=== PATIENT | male | born 1960 | race African-American/Black ===

== ENCOUNTER 2022-01-12 13:15 | Inpatient (IN) | payer MEDICAID, OTHER ==
[~2022-01-12] VITALS: Ht 175.3 cm; Wt 98.6 kg
[2022-01-12 14:08] LABS: Basophils # (auto) 0 10 ^3/uL (0-0.2); Basophils % (auto) 1.3 % (0.0-2.0); Eosinophils # (auto) 0 10 ^3/uL (0-0.8); Eosinophils % (auto) 0.8 % (0.0-7.0); Hematocrit 40.9 % (41.0-53.0); Lymphocytes # (auto) 1.1 10 ^3/uL (0.4-5.4); Lymphocytes % (auto) 31.9 % (10.0-50.0); Mean Corpuscular Hgb Conc. 31.9 g/dL (32.0-36.0); Monocytes # (auto) 0.3 10 ^3/uL (0-1.3); Monocytes % (auto) 8.1 % (0.0-12.0); Neutrophils % (auto) 57.9 % (37.0-80.0); Nucleated Red Blood Cells % 0.1 %; Red Blood Cells 4.49 10^6/uL (4.5-5.90); Red Cell Distribution Width 18.5 % (11.8-14.3); White Blood Cell 3.4 10^3/uL (4.4-10.8)
[2022-01-12 14:50] LABS: Albumin 2.9 g/dL (3.4-5.0); Calcium 8.6 mg/dL (8.5-10.1); Potassium 3.9 mmol/L (3.5-5.1)
[2022-01-12 14:53] LABS: Bilirubin, Total 1.9 mg/dL (0.2-1.0); Total Protein 7.4 g/dL (6.4-8.2)
[2022-01-12] MEDS ORDERED: ACETAMINOPHEN 325 MG TAB PO PRN (18:30)
[2022-01-12] MEDS ORDERED: ONDANSETRON HCL 4 MG/2 ML VIAL IV PRN (18:30)
[2022-01-12] MEDS ORDERED: DEXTROSE (50%) 50ML SYRG IV PRN (18:45)
[2022-01-12] MEDS: ACCU-CHEK COMFORT CURVE STRIP VI SCH (22:00)
[2022-01-12] MEDS: AZITHROMYCIN 500MG/ 250ML 250 ML IV SCH (22:42)
[2022-01-12] MEDS: InsuLIN REG 1unit/0.01ml Soln (100units/ml) SC SCH (23:00)
[2022-01-13] MEDS: PIPERACILLIN-TAZOB 3.375GM 100 ML IV SCH ×3 (04:15→18:17)
[2022-01-13 04:18] VITALS: BP 133/94
[2022-01-13 05:00] VITALS: BP 148/67
[2022-01-13] MEDS ORDERED: BECL80AE11 PO (05:27)
[2022-01-13] MEDS ORDERED: ALBU108A5 PO (05:27)
[2022-01-13] MEDS ORDERED: ATOR-47 PO (05:27)
[2022-01-13] MEDS ORDERED: FAMO40TA7 PO (05:27)
[2022-01-13] MEDS ORDERED: SACU1TAB PO (05:27)
[2022-01-13] MEDS ORDERED: CARV25TA55 PO (05:27)
[2022-01-13] MEDS: ACCU-CHEK COMFORT CURVE STRIP VI SCH ×4 (06:32→22:20)
[2022-01-13] MEDS: InsuLIN REG 1unit/0.01ml Soln (100units/ml) SC SCH ×4 (06:33→22:00)
[2022-01-13 09:00] VITALS: BP 130/89
[2022-01-13 11:03] LABS: Potassium 3.9 mmol/L (3.5-5.1)
[2022-01-13] MEDS: DAPAGLIFLOZIN 5 MG TAB PO SCH (11:07)
[2022-01-13] MEDS: ENOXAPARIN SOD 40 MG/0.4 ML SYRINGE SC SCH (11:07)
[2022-01-13] MEDS: SPIRONOLACTONE 25 MG TAB PO SCH (11:07)
[2022-01-13] MEDS: FUROSEMIDE 20 MG TAB PO SCH (11:07)
[2022-01-13 11:14] LABS: Albumin 2.9 g/dL (3.4-5.0); BUN/Creatinine Ratio 13.3; Bilirubin, Total 2.2 mg/dL (0.2-1.0); Calcium 8.5 mg/dL (8.5-10.1); Total Protein 8.4 g/dL (6.4-8.2)
[2022-01-13 13:04] LABS: Urine Bacteria FEW /hpf (None Seen); Urine Blood 1+ /uL (Negative); Urine Specific Gravity 1.007 (1.001-1.035); Urine WBC 30 /hpf (0 - 3)
[2022-01-13 13:20] LABS: Alcohol, Urine < 3.0 mg/dL (0-10); Amphetamine Screen, Urine POSITIVE (NEGATIVE); Barbiturate Scree,Urine NEGATIVE (NEGATIVE); Benzodiazephine Screen, Urine NEGATIVE (NEGATIVE); Cannabinoid Screen, Urine NEGATIVE (NEGATIVE); Cocaine Screen, Urine NEGATIVE (NEGATIVE); Opiate Scree,Urine NEGATIVE (NEGATIVE); Phencyclidine Screen, Urine NEGATIVE (NEGATIVE)
[2022-01-13 16:48] VITALS: BP 134/95
[2022-01-13 18:01] LABS: Basophils # (auto) 0 10 ^3/uL (0-0.2); Basophils % (auto) 1.1 % (0.0-2.0); Eosinophils # (auto) 0.1 10 ^3/uL (0-0.8); Eosinophils % (auto) 1.5 % (0.0-7.0); Hematocrit 44.2 % (41.0-53.0); Hemoglobin 13.9 g/dL (13.5-17.5); Lymphocytes # (auto) 1.3 10 ^3/uL (0.4-5.4); Lymphocytes % (auto) 37.9 % (10.0-50.0); Mean Corpuscular Hemoglobin 28.9 pg (28.0-32.0); Mean Corpuscular Hgb Conc. 31.4 g/dL (32.0-36.0); Mean Corpuscular Volume 92.1 fL (80.0-100.0); Monocytes # (auto) 0.3 10 ^3/uL (0-1.3); Monocytes % (auto) 7.5 % (0.0-12.0); Neutrophils # (auto) 1.8 10 ^3/uL (1.6-8.6); Nucleated Red Blood Cells % 0.1 %; Red Blood Cells 4.79 10^6/uL (4.5-5.90); Red Cell Distribution Width 18.8 % (11.8-14.3); White Blood Cell 3.4 10^3/uL (4.4-10.8)
[2022-01-13 22:00] VITALS: BP 136/94
[2022-01-13] MEDS: HYDROcodone-ACET 5/325MG TAB PO PRN (22:17)
[2022-01-13] MEDS: AZITHROMYCIN 500MG/ 250ML 250 ML IV SCH (22:21)
[2022-01-14] MEDS: PIPERACILLIN-TAZOB 3.375GM 100 ML IV SCH ×3 (03:32→17:51)
[2022-01-14 05:00] VITALS: BP 104/62
[2022-01-14 06:20] LABS: Basophils # (auto) 0.2 10 ^3/uL (0-0.2); Basophils % (auto) 4.9 % (0.0-2.0); Eosinophils # (auto) 0 10 ^3/uL (0-0.8); Eosinophils % (auto) 1.2 % (0.0-7.0); Hematocrit 37.9 % (41.0-53.0); Hemoglobin 12.5 g/dL (13.5-17.5); Lymphocytes # (auto) 1.2 10 ^3/uL (0.4-5.4); Mean Corpuscular Hemoglobin 30.3 pg (28.0-32.0); Mean Corpuscular Hgb Conc. 32.9 g/dL (32.0-36.0); Monocytes # (auto) 0.3 10 ^3/uL (0-1.3); Monocytes % (auto) 9.2 % (0.0-12.0); Neutrophils # (auto) 1.6 10 ^3/uL (1.6-8.6); Neutrophils % (auto) 48.7 % (37.0-80.0); Nucleated Red Blood Cells % 0.2 %; Red Blood Cells 4.12 10^6/uL (4.5-5.90); Red Cell Distribution Width 18.5 % (11.8-14.3); White Blood Cell 3.4 10^3/uL (4.4-10.8)
[2022-01-14] MEDS: ACCU-CHEK COMFORT CURVE STRIP VI SCH ×4 (06:29→21:44)
[2022-01-14] MEDS: InsuLIN REG 1unit/0.01ml Soln (100units/ml) SC SCH ×4 (06:38→21:45)
[2022-01-14 06:44] LABS: Potassium 3.8 mmol/L (3.5-5.1)
[2022-01-14 06:54] LABS: Albumin 2.3 g/dL (3.4-5.0); BUN/Creatinine Ratio 16.8; Bilirubin, Total 1.6 mg/dL (0.2-1.0); Calcium 8.2 mg/dL (8.5-10.1); Total Protein 6.4 g/dL (6.4-8.2)
[2022-01-14] MEDS: ENOXAPARIN SOD 40 MG/0.4 ML SYRINGE SC SCH (08:07)
[2022-01-14] MEDS: DAPAGLIFLOZIN 5 MG TAB PO SCH (08:07)
[2022-01-14] MEDS: SPIRONOLACTONE 25 MG TAB PO SCH (08:07)
[2022-01-14] MEDS: HYDROcodone-ACET 5/325MG TAB PO PRN (08:08)
[2022-01-14 09:00] VITALS: BP 127/73
[2022-01-14] MEDS: FUROSEMIDE 20 MG TAB PO SCH (12:12)
[2022-01-14 14:00] VITALS: BP 104/70
[2022-01-14] MEDS ORDERED: FUR20T PO (15:49)
[2022-01-14] MEDS ORDERED: LEVO500T31 PO (15:49)
[2022-01-14] MEDS ORDERED: SPIR25TA PO (15:49)
[2022-01-14 17:00] VITALS: BP 117/60
[2022-01-14 22:00] VITALS: BP 116/81
[2022-01-15] MEDS: AZITHROMYCIN 500MG/ 250ML 250 ML IV SCH (00:05)
[2022-01-15] MEDS: HYDROcodone-ACET 5/325MG TAB PO PRN ×3 (00:13→22:15)
[2022-01-15] MEDS: PIPERACILLIN-TAZOB 3.375GM 100 ML IV SCH ×2 (02:41→09:38)
[2022-01-15 05:00] VITALS: BP 113/82
[2022-01-15] MEDS: ACCU-CHEK COMFORT CURVE STRIP VI SCH ×4 (05:37→22:03)
[2022-01-15] MEDS: InsuLIN REG 1unit/0.01ml Soln (100units/ml) SC SCH ×4 (05:40→22:11)
[2022-01-15 09:00] VITALS: BP 122/85
[2022-01-15] MEDS: SPIRONOLACTONE 25 MG TAB PO SCH (09:37)
[2022-01-15] MEDS: FUROSEMIDE 20 MG TAB PO SCH (09:38)
[2022-01-15] MEDS: ENOXAPARIN SOD 40 MG/0.4 ML SYRINGE SC SCH (09:38)
[2022-01-15] MEDS: DAPAGLIFLOZIN 5 MG TAB PO SCH (09:38)
[2022-01-15 13:00] VITALS: BP 132/86
[2022-01-15 17:00] VITALS: BP 120/85
[2022-01-15] MEDS: MORPHINE SULFATE INJ 2 MG/ml SYRG IV PRN (20:32)
[2022-01-15 22:00] VITALS: BP 112/82
[2022-01-16] MEDS: MORPHINE SULFATE INJ 2 MG/ml SYRG IV PRN (04:45)
[2022-01-16 05:00] VITALS: BP 111/68
[2022-01-16] MEDS: ACCU-CHEK COMFORT CURVE STRIP VI SCH ×2 (06:23→11:40)
[2022-01-16] MEDS: InsuLIN REG 1unit/0.01ml Soln (100units/ml) SC SCH ×2 (06:24→11:43)
[2022-01-16] MEDS: HYDROcodone-ACET 5/325MG TAB PO PRN (06:25)
[2022-01-16 09:00] VITALS: BP 102/74
[2022-01-16] MEDS: SPIRONOLACTONE 25 MG TAB PO SCH (09:50)
[2022-01-16] MEDS: FUROSEMIDE 20 MG TAB PO SCH (09:51)
[2022-01-16] MEDS: DAPAGLIFLOZIN 5 MG TAB PO SCH (09:51)
[2022-01-16] MEDS: ENOXAPARIN SOD 40 MG/0.4 ML SYRINGE SC SCH (09:51)
[2022-01-16 10:56] VITALS: BP 102/74
[2022-01-17] MEDS ORDERED: FLUO40CA2 PO (21:16)
== END 2022-01-16 14:00 | disposition home or self-care (01) | DRG 383 ==
LOC: EDBD 13:15 → ER 13:15 → TELE 18:29 → TELE-WESTW 01-13 03:05
PROVIDERS: ADMIT Internal Medicine; ATTEND Internal Medicine
DX: L03.116 Cellulitis of left lower limb (principal); I50.21 Acute systolic (congestive) heart failure; J18.9 Pneumonia, unspecified organism; I42.0 Dilated cardiomyopathy; J44.0 Chronic obstructive pulmonary disease with (acute) lower respiratory infection; E11.40 Type 2 diabetes mellitus with diabetic neuropathy, unspecified; I11.0 Hypertensive heart disease with heart failure; J44.9 Chronic obstructive pulmonary disease, unspecified; Z20.822 Contact with and (suspected) exposure to COVID-19; E78.5 Hyperlipidemia, unspecified; F12.90 Cannabis use, unspecified, uncomplicated; F15.90 Other stimulant use, unspecified, uncomplicated; I87.8 Other specified disorders of veins; I89.0 Lymphedema, not elsewhere classified; N39.0 Urinary tract infection, site not specified; Z59.00 Homelessness unspecified; Z82.49 Family history of ischemic heart disease and other diseases of the circulatory system; Z83.3 Family history of diabetes mellitus; Z91.19 Patient's noncompliance with other medical treatment and regimen; Z95.810 Presence of automatic (implantable) cardiac defibrillator
CPT/HCPCS: 36415; 71045; 73700; 80053; 80061; 80307; 81001; 82962; 83036; 83880; 84484; 85025; 87086; 93005; 96365; 96372; G0378; J1815; J2543

== ENCOUNTER 2022-01-17 01:41 | Inpatient (IN) | payer MEDICAID ==
[~2022-01-17] VITALS: Ht 182.9 cm; Wt 88.0 kg
[~2022-01-17 01:41] MED LIST: ALBU108A5 PO; ATOR-47 PO; BECL80AE11 PO; CARV25TA55 PO; FAMO40TA7 PO; FUR20T PO; LEVO500T31 PO; SACU1TAB PO; SPIR25TA PO
[2022-01-17 03:38] LABS: Basophils # (auto) 0.1 10 ^3/uL (0-0.2); Eosinophils # (auto) 0 10 ^3/uL (0-0.8); Eosinophils % (auto) 0.9 % (0.0-7.0); Hematocrit 44.9 % (41.0-53.0); Hemoglobin 14.2 g/dL (13.5-17.5); Lymphocytes # (auto) 1.4 10 ^3/uL (0.4-5.4); Lymphocytes % (auto) 42.6 % (10.0-50.0); Mean Corpuscular Hemoglobin 28.6 pg (28.0-32.0); Mean Corpuscular Hgb Conc. 31.6 g/dL (32.0-36.0); Mean Corpuscular Volume 90.4 fL (80.0-100.0); Monocytes # (auto) 0.2 10 ^3/uL (0-1.3); Monocytes % (auto) 6.7 % (0.0-12.0); Neutrophils # (auto) 1.6 10 ^3/uL (1.6-8.6); Neutrophils % (auto) 47.8 % (37.0-80.0); Nucleated Red Blood Cells % 0.2 %; Red Blood Cells 4.97 10^6/uL (4.5-5.90); White Blood Cell 3.4 10^3/uL (4.4-10.8)
[2022-01-17 03:50] LABS: Albumin 3.1 g/dL (3.4-5.0); Calcium 9.2 mg/dL (8.5-10.1); Potassium 4.6 mmol/L (3.5-5.1)
[2022-01-17 03:55] LABS: Bilirubin, Total 1.2 mg/dL (0.2-1.0); Total Protein 7.6 g/dL (6.4-8.2)
[2022-01-17] MEDS ORDERED: SPIRONOLACTONE 25 MG TAB PO ONE (08:00)
[2022-01-17] MEDS ORDERED: FUROSEMIDE 40 MG/4 ML VIAL IV ONE (08:00)
[2022-01-17 09:24] LABS: Urine Bacteria NONE SEEN /hpf (None Seen); Urine Blood Negative /uL (Negative); Urine Specific Gravity 1.017 (1.001-1.035); Urine WBC 1 /hpf (0 - 3)
[2022-01-17] MEDS ORDERED: ONDANSETRON HCL 4 MG/2 ML VIAL IV PRN (16:15)
[2022-01-17] MEDS ORDERED: MORPHINE SULFATE INJ 2 MG/ml SYRG IV PRN (16:15)
[2022-01-17] MEDS ORDERED: NITROGLYCERIN 0.4 MG SL TAB SL PRN (16:15)
[2022-01-17] MEDS ORDERED: FLUO40CA2 PO (21:16)
[2022-01-17 21:40] VITALS: BP 135/95
[2022-01-17] MEDS ORDERED: FUROSEMIDE 40 MG/4 ML VIAL IV SCH (22:00)
[2022-01-18 05:00] VITALS: BP 128/93
[2022-01-18 05:31] LABS: Basophils # (auto) 0 10 ^3/uL (0-0.2); Basophils % (auto) 1.3 % (0.0-2.0); Eosinophils # (auto) 0 10 ^3/uL (0-0.8); Hematocrit 40.5 % (41.0-53.0); Hemoglobin 13.6 g/dL (13.5-17.5); Lymphocytes # (auto) 1.4 10 ^3/uL (0.4-5.4); Lymphocytes % (auto) 45.5 % (10.0-50.0); Mean Corpuscular Hemoglobin 30.2 pg (28.0-32.0); Mean Corpuscular Hgb Conc. 33.7 g/dL (32.0-36.0); Mean Corpuscular Volume 89.7 fL (80.0-100.0); Monocytes # (auto) 0.3 10 ^3/uL (0-1.3); Monocytes % (auto) 7.9 % (0.0-12.0); Neutrophils # (auto) 1.4 10 ^3/uL (1.6-8.6); Neutrophils % (auto) 44.3 % (37.0-80.0); Nucleated Red Blood Cells % 0.2 %; Red Blood Cells 4.51 10^6/uL (4.5-5.90); Red Cell Distribution Width 17.9 % (11.8-14.3); White Blood Cell 3.2 10^3/uL (4.4-10.8)
[2022-01-18 05:41] LABS: Albumin 2.8 g/dL (3.4-5.0); BUN/Creatinine Ratio 13.3; Calcium 8.7 mg/dL (8.5-10.1); Potassium 4.4 mmol/L (3.5-5.1)
[2022-01-18 05:53] LABS: Total Protein 7.4 g/dL (6.4-8.2)
[2022-01-18 09:00] VITALS: BP_SYST 105; BP_SYST 137; BP_DIAS 64; BP_DIAS 92
[2022-01-18] MEDS: CARVEDILOL 3.125 MG TAB PO SCH ×2 (10:06→22:23)
[2022-01-18] MEDS: FUROSEMIDE 40 MG/4 ML VIAL IV SCH ×2 (10:06→22:23)
[2022-01-18] MEDS: SPIRONOLACTONE 25 MG TAB PO SCH (10:06)
[2022-01-18] MEDS: SACUBITRIL-VALSARTAN 24mg/26mg TAB PO SCH ×2 (10:07→22:24)
[2022-01-18] MEDS ORDERED: DEXTROSE (50%) 50ML SYRG IV PRN (12:00)
[2022-01-18 13:00] VITALS: BP 124/82
[2022-01-18] MEDS: InsuLIN REG 1unit/0.01ml Soln (100units/ml) SC SCH ×3 (13:01→22:37)
[2022-01-18 17:00] VITALS: BP 122/88
[2022-01-18] MEDS ORDERED: InsuLIN REG 1unit/0.01ml Soln (100units/ml) SC SCH (17:00)
[2022-01-18] MEDS: ACCU-CHEK COMFORT CURVE STRIP VI SCH ×2 (17:29→22:24)
[2022-01-18 20:00] VITALS: BP 114/71
[2022-01-18] MEDS: MORPHINE SULFATE INJ 2 MG/ml SYRG IV PRN (22:25)
[2022-01-18 22:31] LABS: Alcohol, Urine < 3.0 mg/dL (0-10); Amphetamine Screen, Urine NEGATIVE (NEGATIVE); Barbiturate Scree,Urine NEGATIVE (NEGATIVE); Benzodiazephine Screen, Urine NEGATIVE (NEGATIVE); Cannabinoid Screen, Urine NEGATIVE (NEGATIVE); Cocaine Screen, Urine NEGATIVE (NEGATIVE); Opiate Scree,Urine NEGATIVE (NEGATIVE); Phencyclidine Screen, Urine NEGATIVE (NEGATIVE)
[2022-01-19 05:00] VITALS: BP 99/66
[2022-01-19 05:25] LABS: Basophils # (auto) 0 10 ^3/uL (0-0.2); Basophils % (auto) 0.9 % (0.0-2.0); Eosinophils # (auto) 0 10 ^3/uL (0-0.8); Eosinophils % (auto) 1.2 % (0.0-7.0); Hematocrit 44.8 % (41.0-53.0); Hemoglobin 14.7 g/dL (13.5-17.5); Lymphocytes # (auto) 1.4 10 ^3/uL (0.4-5.4); Lymphocytes % (auto) 37.2 % (10.0-50.0); Mean Corpuscular Hemoglobin 29.7 pg (28.0-32.0); Mean Corpuscular Hgb Conc. 32.8 g/dL (32.0-36.0); Mean Corpuscular Volume 90.4 fL (80.0-100.0); Monocytes # (auto) 0.3 10 ^3/uL (0-1.3); Monocytes % (auto) 8.9 % (0.0-12.0); Neutrophils # (auto) 1.9 10 ^3/uL (1.6-8.6); Neutrophils % (auto) 51.8 % (37.0-80.0); Nucleated Red Blood Cells % 0.2 %; Red Blood Cells 4.96 10^6/uL (4.5-5.90); Red Cell Distribution Width 18.2 % (11.8-14.3); White Blood Cell 3.7 10^3/uL (4.4-10.8)
[2022-01-19 05:31] LABS: BUN/Creatinine Ratio 17.6; Calcium 8.5 mg/dL (8.5-10.1); Potassium 4.1 mmol/L (3.5-5.1)
[2022-01-19] MEDS: ACCU-CHEK COMFORT CURVE STRIP VI SCH ×4 (06:41→22:58)
[2022-01-19] MEDS: InsuLIN REG 1unit/0.01ml Soln (100units/ml) SC SCH ×4 (06:44→23:17)
[2022-01-19 08:36] VITALS: BP 91/60
[2022-01-19] MEDS: SPIRONOLACTONE 25 MG TAB PO SCH (08:40)
[2022-01-19] MEDS: FUROSEMIDE 40 MG/4 ML VIAL IV SCH ×2 (08:40→22:57)
[2022-01-19] MEDS: CARVEDILOL 3.125 MG TAB PO SCH ×2 (08:41→22:57)
[2022-01-19] MEDS: SACUBITRIL-VALSARTAN 24mg/26mg TAB PO SCH ×2 (08:41→22:57)
[2022-01-19] MEDS: MORPHINE SULFATE INJ 2 MG/ml SYRG IV PRN (12:24)
[2022-01-19 12:34] VITALS: BP 112/77
[2022-01-19 17:00] VITALS: BP 116/80
[2022-01-19 22:00] VITALS: BP 121/81
[2022-01-20 05:00] VITALS: BP 109/76
[2022-01-20 05:40] LABS: BUN/Creatinine Ratio 23.1; Calcium 8.2 mg/dL (8.5-10.1); Potassium 4.2 mmol/L (3.5-5.1)
[2022-01-20] MEDS: ACCU-CHEK COMFORT CURVE STRIP VI SCH ×3 (06:33→17:52)
[2022-01-20] MEDS: InsuLIN REG 1unit/0.01ml Soln (100units/ml) SC SCH ×3 (06:51→17:53)
[2022-01-20] MEDS: MORPHINE SULFATE INJ 2 MG/ml SYRG IV PRN (07:28)
[2022-01-20] MEDS: CARVEDILOL 3.125 MG TAB PO SCH (08:39)
[2022-01-20] MEDS: SACUBITRIL-VALSARTAN 24mg/26mg TAB PO SCH (08:41)
[2022-01-20] MEDS: FUROSEMIDE 40 MG/4 ML VIAL IV SCH (08:41)
[2022-01-20] MEDS: SPIRONOLACTONE 25 MG TAB PO SCH (08:41)
[2022-01-20 08:49] LABS: INR 1.2 (0.9-1.15); Partial Thromboplastin Time 27.9 sec (24.6-33.4)
[2022-01-20 09:10] VITALS: BP 97/67
[2022-01-20] MEDS ORDERED: CAR3125T PO ×2 (12:09→13:11)
[2022-01-20] MEDS ORDERED: FURO40TA4 PO ×2 (12:09→13:11)
[2022-01-20] MEDS ORDERED: GLIP5TAB12 PO ×2 (12:12→13:11)
[2022-01-20] MEDS ORDERED: METF-370 PO ×2 (12:12→13:11)
[2022-01-20 13:25] VITALS: BP 105/64
[2022-01-20 16:20] VITALS: BP 101/63
[2022-01-20 17:24] VITALS: BP 105/64
== END 2022-01-20 21:27 | disposition home or self-care (01) | DRG 194 ==
LOC: EDUNIT# 01:41 → EDBD 01:41 → ER 01:41 → TELE 16:13 → TELE-WESTW 20:30
PROVIDERS: ADMIT Internal Medicine; ATTEND Internal Medicine
PROC: 4B02XTZ Measurement of Cardiac Defibrillator, External Approach (ICD-10-PCS; principal; 2022-01-19)
DX: I11.0 Hypertensive heart disease with heart failure (principal); E44.1 Mild protein-calorie malnutrition; I50.23 Acute on chronic systolic (congestive) heart failure; E11.65 Type 2 diabetes mellitus with hyperglycemia; J44.9 Chronic obstructive pulmonary disease, unspecified; F17.200 Nicotine dependence, unspecified, uncomplicated; E78.5 Hyperlipidemia, unspecified; Z20.822 Contact with and (suspected) exposure to COVID-19; Z59.01 Sheltered homelessness; Z82.49 Family history of ischemic heart disease and other diseases of the circulatory system; Z91.19 Patient's noncompliance with other medical treatment and regimen; Z95.810 Presence of automatic (implantable) cardiac defibrillator; Z79.899 Other long term (current) drug therapy
CPT/HCPCS: 36415; 36600; 71045; 80048; 80053; 80307; 81001; 82805; 82962; 83735; 83880; 84484; 85025; 85610; 85730; 87081; 93005; 93306; 96374; 96376; G0378; J1815

== ENCOUNTER 2024-09-01 14:27 | Inpatient (IN) | payer MEDICAID ==
[~2024-09-01] VITALS: Ht 182.9 cm; Wt 142.3 kg
[~2024-09-01 14:27] MED LIST changes: +CARV-214 PO; -CARV25TA55 PO; +FLUO40CA2 PO; -FUR20T PO; +FURO40TA4 PO; +GLIP5TAB21 PO; +METF-370 PO
--- NOTE | 2024-09-01 14:34 | ED.PDOC ---
SOB-HPI HPI Comments 64y M who presents to the ED via EMS for chief complaint of shortness of breath. - pt states he has been having shortness of breath for the past 3-4 days getting progressively worse - pt over the past 3 days has been having associated cough, fever and body aches and called EMS - EMS arrived on scene and noted the following vitals: BP: 130/90, HR: 88, and 02 sat 98% on room air - pt was not in respiratory distress and brought to the ED after placing pt on supplemental 02 after noting pt has history of COPD and is normally on 2 L via nc - pt otherwise denies chest pain, fever, cough, chills, diaphoresis, palpitations, - pt states he was at [facility] for CHF exacerbation and discharged 3 weeks prior but states has not taken any of his regular medications since - Past medical history: COPD, CHF, HTN, DM, HLD past surgical history: pacemaker, knee replacement Medications: asa, Lasix, hydralazine, Allergies: nkda Social history: endorses ETOH, denies tobacco use, endorses drug use(marijuana, METH) HPI: Poor Historian. REVIEW OF SYSTEMS: CONSTITUTIONAL: Denies acute: fever, diaphoresis, chills, HEAD: Denies acute: headache, photophobia Eyes: Denies acute: Double vision, vision loss, eye pain, eye discharge. EARS: Denies acute: tinnitus, hearing loss, ear discharge, ear pain, THROAT: Denies acute: sore throat, swelling, difficulty swallowing , pain with swallowing, change in voice. NECK: Denies acute: neck pain, neck swelling, stiff neck. HEART: Denies acute : chest pain, palpitations, LUNGS: Denies acute: wheezing, cough, hemoptysis ABDOMEN: Denies acute: abdominal pain, Nausea, Vomiting, diarrhea, melena , hematemesis, hematochezia SKIN: Denies acute: rash, redness, lesions, itchiness. EXTREMITIES: Denies acute: calf pain, numbness, tingling, weakness, denies pain in extremity. Denies acute: Low back pain. Neuro: Denies acute: focal neurological deficit, motor or sensory focal neurological deficit, tremors, seizure like activity, confusion, dizziness, change in mental status, loss of bowel or bladder function, cauda equina like symptoms. : Denies acute: dysuria, hematuria, flank pain, increase in urinary frequency. PSYCH: Denies acute: hallucination, suicidal ideation, homicidal ideation. PHYSICAL EXAM: General: -----[id number]---acute distress, awake and alert. Head: normocephalic, atraumatic. Neck: supple, trachea is midline, no swelling. Throat: Normal phonation. Eyes:, no erythema, no purulent discharge, no proptosis, no icterus. Heart: regular rate, regular rhythm, no significant murmur appreciated. Lungs: Mild respiratory distress, Able to speak in full sentences. No wheezing, no rhonchi, no crackles. No stridors Clear to auscultation bilaterally. Abdomen: non tender to palpation, non distended, soft, no guarding, no rebound, + bowel sounds. Neuro: Awake, Alert, oriented to name, self, situation, follows commands GCS=15. Speech is normal. Skin: no petechia, no purpura, no cyanosis, non-pale, not jaundice. Lower extremities: --2/4 b/l - Pitting edema no deformity, no focal swelling, no calf TTP. Makes eye contact. moves all four extremities. Face: no apparent facial droop. ED COURSE: Time Seen by MD: 14:51 Primary Care Provider: OCTAVIA Matamoros notes: Nurses Notes, Medications, Allergies Information Source: Patient Mode of Arrival: Ambulatory Brought in by: EMS Past Medical History PAST MEDICAL HISTORY: CHF, COPD, DM, High Lipids, HTN Surgical History: Appendectomy, Pacemaker Family History Family History: Reviewed,noncontributory to illness Social History Smoker: Other Alcohol: Occasionally Drugs: Marijuana, Methamphetamine Lives In: Homeless Was a procedure done? Was a procedure done?: No Differential Dx Differential Diagnosis: Other (DDx include ACS, unstable angina, anxiety, PE, pneumothroax, neoplasm, cardiac ischemia, COPD, asthma, CHF, pleural effusion, tobacco abuse, pneumonia, hypoxia, hypercapnia, anemia., infection/sepsis., pulmonary edema. Asthma, Cardiac tamponade, infection.) X-Ray, Labs, Meds, VS Vital Signs Date Time Temp Pulse Resp B/P (MAP) Pulse Ox O2 Delivery O2 Flow Rate FiO2 09/01/24 15:18 139/93 09/01/24 14:27 89 09/01/24 14:27 94.1 87 22 126/82 (97) 100 94.1 Lab Test 09/01/24 14:44 Range/Units White Blood Count 2.9 L 4.4-10.8 10^3/uL Red Blood Count 4.11 L 4.5-5.90 10^6/uL Hemoglobin 12.5 L 13.5-17.5 g/dL Hematocrit 38.9 L 41.0-53.0 % Mean Corpuscular Volume 94.7 80.0-100.0 fL Mean Corpuscular Hemoglobin 30.5 28.0-32.0 pg Mean Corpuscular Hemoglobin Concent 32.2 32.0-36.0 g/dL Red Cell Distribution Width 18.0 H 11.8-14.3 % Platelet Count 191 140-450 10^3/uL Mean Platelet Volume 7.8 6.9-10.8 fL Neutrophils (%) (Auto) 50.6 37.0-80.0 % Lymphocytes (%) (Auto) 36.3 10.0-50.0 % Monocytes (%) (Auto) 9.8 0.0-12.0 % Eosinophils (%) (Auto) 2.3 0.0-7.0 % Basophils (%) (Auto) 1.0 0.0-2.0 % Neutrophils # (Auto) 1.4 L 1.6-8.6 10 ^3/uL Lymphocytes # (Auto) 1.0 0.4-5.4 10 ^3/uL Monocytes # (Auto) 0.3 0-1.3 10 ^3/uL Eosinophils # (Auto) 0.1 0-0.8 10 ^3/uL Basophils # (Auto) 0 0-0.2 10 ^3/uL Nucleated Red Blood Cells 0.1 % Sodium Level 135 L 136-145 mmol/L Potassium Level 4.8 3.5-5.1 mmol/L Chloride Level 106 98-107 mmol/L Carbon Dioxide Level 22 20-31 mmol/L Anion Gap 7 5-15 Blood Urea Nitrogen 21 9-23 mg/dL Creatinine 1.05 0.700-1.30 mg/dL Glomerular Filtration Rate Calc 80 >90 mL/min BUN/Creatinine Ratio 20.0 10.0-20.0 Serum Glucose 152 H 74-106 mg/dL Calcium Level 9.0 8.7-10.4 mg/dL Total Bilirubin 1.1 H 0.2-1.0 mg/dL Aspartate Amino Transferase (AST) 24 13-40 U/L Alanine Aminotransferase (ALT) 19 7-40 U/L Alkaline Phosphatase 124 H 46-116 U/L Troponin I High Sensitivity 25 </=54 ng/L B-Type Natriuretic Peptide 687.75 0-100 pg/mL Total Protein 8.0 5.7-8.2 g/dL Albumin 3.8 3.2-4.8 g/dL Current Medications Medications (Trade) Dose Ordered Sig/Eyal Route Start Time Stop Time Status Last Admin Furosemide (Lasix Injection) 60 mg ONCE ONCE IV 09/01/24 14:30 09/01/24 14:31 DC 09/01/24 15:18 [place] [address] Ph: [phone] DIAGNOSTIC IMAGING Diagnostic Imaging Report : [id number] Signed PATIENT: VINAYAK HAMLIN ACCT: [id number] UNIT: [id number] : 1960 LOC: ER ROOM / BED: / AGE / SEX: 64 / M ADM STATUS: REG ER SERVICE 1429 ORDERING PHYSICIAN: MAGGY HUTCHINSON DO PROCEDURE(s): CXRP - CHEST PORTABLE REASON: sob ORDER NUMBER(s): [id number], ACCESSION NUMBER(s): [id number] EXAM: XY CHEST PORTABLE HISTORY: sob COMPARISON: CHEST PORTABLE on DOS: 01/17/22, CHEST PORTABLE on DOS: 01/12/22 TECHNIQUE: Portable AP view of the chest was performed. FINDINGS: No pneumothorax or consolidative infiltrates. There is mild central pulmonary vascular congestion. The heart is enlarged. Left chest AICD is re-identified. There are postoperative changes of the right glenoid. IMPRESSION: Cardiomegaly and mild central pulmonary vascular congestion. The lungs are otherwise clear. ATED BY: JOAQUIM LAY MD DICTATED DATE/TIME: 09/01/24 1500 SIGNED BY: JOAQUIM LAY MD SIGNED DATE/TIME: 09/01/24 1500 CC: Time of 1ST Reevaluation: 15:13 Reevaluation 1ST: Improved Patient Education/Counseling: Diagnosis, Treatment Family Education/Counseling: No Family Present Comments Patient presented with the above HPI.--dyspnea----workup was initiated. patient was found with the above mentioned diagnosis. the following medications were ordered: please refer to order lists of meds and tests obtained by myself Dr. Hutchinson. Patient ED course and VS have been stabilized. Patient has been reassessed in the ED and remained in a stable condition. Pertinent incidental findings were discussed with the patient and/or family. Patient/family voices understanding and is agreeable with plan. Patient has been observed in the ED adequate length of time to insure improvement/stability. Escalation of care considered: Consideration of escalation to observation or admission Patient states that since he was discharged from the hospital approximately three weeks ago he has not been taking including Lasix. Patient was ADMITTED to the medicine team for further evaluation and treatment of their presentation. All the reports of any imaging studies that were ordered by myself were reviewed by myself. Departure 1 Departure Time of Disposition: 15:12 Impression: Primary Impression: CHF exacerbation Additional Impression: Noncompliance with medications Disposition: ADMITTED INPATIENT Admit to: [facility] Condition: Guarded Discharged With: Self Critical Care Note Critical Care Time?: Yes (35 min-critical care time only) Heart Score Heart Score: Heart Score Response (Comments) Value History Moderate Suspicious [address]-Deviation 2 Age 45-64 1 Risk Factors >3 or Hx ASHD 2 Troponin Normal limit 0 Total 6 I personally scribed for MAGGY HUTCHINSON DO ([email or web address]) on 09/01/24 at 14:33. Electronically submitted by Orquidea Ewing ([email or web address]). I personally scribed for MAGGY HUTCHINSON DO ([email or web address]) on 09/01/24 at 14:53. Electronically submitted by Orquidea Ewing ([email or web address]). I personally scribed for MAGGY HUTCHINSON DO ([email or web address]) on 09/01/24 at 15:37. Electronically submitted by Orquidea Ewing ([email or web address]). MAGGY HUTCHINSON DO Sep 01, 2024 14:33
--- NOTE | 2024-09-01 15:03 | DVH ---
EXAM: XY CHEST PORTABLE HISTORY: sob COMPARISON: CHEST PORTABLE on DOS: 01/17/22, CHEST PORTABLE on DOS: 01/12/22 TECHNIQUE: Portable AP view of the chest was performed. FINDINGS: No pneumothorax or consolidative infiltrates. There is mild central pulmonary vascular congestion. Th e heart is enlarged. Left chest AICD is re-identified. There are postoperative changes of the right glenoid. IMPRESSION: Cardiomegaly and mild central pulmonary vascular congestion. The lungs are otherwise clear.
[2024-09-01 15:15] LABS: Basophils # (auto) 0 10 ^3/uL (0-0.2); Eosinophils # (auto) 0.1 10 ^3/uL (0-0.8); Eosinophils % (auto) 2.3 % (0.0-7.0); Hematocrit 38.9 % (41.0-53.0); Hemoglobin 12.5 g/dL (13.5-17.5); Lymphocytes % (auto) 36.3 % (10.0-50.0); Mean Corpuscular Hemoglobin 30.5 pg (28.0-32.0); Mean Corpuscular Hgb Conc. 32.2 g/dL (32.0-36.0); Mean Corpuscular Volume 94.7 fL (80.0-100.0); Monocytes # (auto) 0.3 10 ^3/uL (0-1.3); Monocytes % (auto) 9.8 % (0.0-12.0); Neutrophils # (auto) 1.4 10 ^3/uL (1.6-8.6); Neutrophils % (auto) 50.6 % (37.0-80.0); Nucleated Red Blood Cells % 0.1 %; Platelet Count (auto) 191 10^3/uL (140-450); Red Blood Cells 4.11 10^6/uL (4.5-5.90); White Blood Cell 2.9 10^3/uL (4.4-10.8)
[2024-09-01] MEDS: FUROSEMIDE 100 MG/10ML VIAL IV ONE (15:18)
[2024-09-01 15:31] LABS: Alanine Aminotransferase 19 U/L (7-40); Albumin 3.8 g/dL (3.2-4.8); Alkaline Phosphatase 124 U/L (46-116); Anion Gap 7 (5-15); Aspartate Aminotransferase 24 U/L (13-40); Bilirubin, Total 1.1 mg/dL (0.2-1.0); Blood Urea Nitrogen 21 mg/dL (9-23); Carbon Dioxide 22 mmol/L (20-31); Chloride 106 mmol/L (98-107); Glucose 152 mg/dL (74-106); Potassium 4.8 mmol/L (3.5-5.1); Sodium 135 mmol/L (136-145)
[2024-09-01 16:00] VITALS: PULSE 87; RESP 18; O2SAT 100
[2024-09-01] MEDS ORDERED: DOCUSATE SOD 100 MG CAP PO PRN (16:15)
[2024-09-01] MEDS ORDERED: NITROGLYCERIN 0.4 MG SL TAB SL PRN (16:15)
[2024-09-01] MEDS ORDERED: ONDANSETRON HCL 4 MG/2 ML VIAL IV PRN (16:15)
[2024-09-01] MEDS ORDERED: ACETAMINOPHEN 325 MG TAB PO PRN (16:15)
[2024-09-01] MEDS ORDERED: MORPHINE SULFATE INJ 2 MG/ml SYRG IV PRN (16:15)
[2024-09-01] MEDS ORDERED: DEXTROSE (50%) 50ML SYRG IV PRN (16:30)
[2024-09-01] MEDS: ACCU-CHEK COMFORT CURVE STRIP VI SCH (17:13)
[2024-09-01] MEDS: InsuLIN REG 1unit/0.01ml Soln (100units/ml) SC SCH (17:15)
[2024-09-01 17:47] VITALS: RESP 18; O2SAT 100
[2024-09-01 20:00] VITALS: PULSE 81; PULSE 88; RESP 16; O2SAT 99
[2024-09-01] MEDS: MORPHINE SULFATE INJ 2 MG/ml SYRG IV PRN (20:46)
[2024-09-01 21:00] VITALS: BP 123/89; PULSE 86; RESP 17; TEMP 97.2; O2SAT 100
[2024-09-01] MEDS: ATORVASTATIN 20 MG TAB PO SCH (21:15)
[2024-09-01] MEDS: CARVEDILOL 3.125 MG TAB PO SCH (21:15)
[2024-09-01] MEDS: SACUBITRIL-VALSARTAN 24mg/26mg TAB PO SCH (21:15)
[2024-09-02] VITALS (8 sets, daily range): BP systolic 94–117; BP diastolic 61–81; PULSE 63–81; RESP 16–19; TEMP 97.1–98.4; O2SAT 95–99
[2024-09-02 06:12] LABS: Basophils # (auto) 0 10 ^3/uL (0-0.2); Basophils % (auto) 1.3 % (0.0-2.0); Eosinophils # (auto) 0.1 10 ^3/uL (0-0.8); Eosinophils % (auto) 2.7 % (0.0-7.0); Hematocrit 36.2 % (41.0-53.0); Hemoglobin 11.8 g/dL (13.5-17.5); Lymphocytes # (auto) 1.1 10 ^3/uL (0.4-5.4); Lymphocytes % (auto) 42.9 % (10.0-50.0); Mean Corpuscular Hemoglobin 30.5 pg (28.0-32.0); Mean Corpuscular Hgb Conc. 32.7 g/dL (32.0-36.0); Mean Corpuscular Volume 93.5 fL (80.0-100.0); Monocytes # (auto) 0.3 10 ^3/uL (0-1.3); Monocytes % (auto) 12.9 % (0.0-12.0); Neutrophils # (auto) 1.1 10 ^3/uL (1.6-8.6); Neutrophils % (auto) 40.2 % (37.0-80.0); Nucleated Red Blood Cells % 0.2 %; Platelet Count (auto) 186 10^3/uL (140-450); Red Blood Cells 3.87 10^6/uL (4.5-5.90); Red Cell Distribution Width 17.8 % (11.8-14.3); White Blood Cell 2.6 10^3/uL (4.4-10.8)
--- NOTE | 2024-09-02 06:20 | ECG ---
[facility] Test Date: 2024-09-01 Test Time: 15:32:19 Pat Name: VINAYAK HAMLIN Department: ER Room: 0220T B Gender: M Dialysis Nurse: ALEISHA : 1960 Requested By: MAGGY HUTCHINSON Order Number: [id number] Reading MD: Trevor Bolton Measurements Intervals [place] Rate: 83 P: -14 ND: 109 QRS: 157 QRSD: 185 T: -24 QT: 460 QTc: 541 Interpretive Statements Atrial-sensed ventricular-paced rhythm No further analysis attempted due to paced rhythm Artifact in lead(s) V4 Electronically Signed On 09-02-2024 15:11:39 PDT by Trevor Bolton Please click the below link to view image of tracing.
[2024-09-02 06:33] LABS: Alanine Aminotransferase 12 U/L (7-40); Alkaline Phosphatase 101 U/L (46-116); Anion Gap 10 (5-15); Aspartate Aminotransferase 19 U/L (13-40); BUN/Creatinine Ratio 17.9 (10.0-20.0); Blood Urea Nitrogen 17 mg/dL (9-23); Carbon Dioxide 22 mmol/L (20-31); Chloride 105 mmol/L (98-107); Glucose 87 mg/dL (74-106); Potassium 4.1 mmol/L (3.5-5.1); Sodium 137 mmol/L (136-145)
--- NOTE | 2024-09-02 06:33 | ECG ---
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
[2024-09-02 06:39] LABS: Albumin 3.1 g/dL (3.2-4.8); Bilirubin, Total 1.4 mg/dL (0.2-1.0)
[2024-09-02] MEDS: ENOXAPARIN SOD 40 MG/0.4 ML SYRINGE SC SCH (08:25)
[2024-09-02] MEDS: SPIRONOLACTONE 25 MG TAB PO SCH (08:26)
[2024-09-02] MEDS: FUROSEMIDE 40 MG TAB PO SCH (08:26)
[2024-09-02] MEDS: PANTOPRAZOLE 40 MG TAB PO SCH (08:26)
[2024-09-02] MEDS: glipiZIDE 5 MG TAB PO SCH (08:34)
--- NOTE | 2024-09-02 13:33 | DVHHP2 ---
Admitting Diagnosis: Shortness of breath History of Present Illness 64 year old male is complaining worsening shortness of breath for 4 days. Patient is also complaining of cough, fever and bodyaches. Patient states he is normally on 2L NC at home. Patient reports he was at [facility] for CHF exacerbation and discharged 3 weeks prior but has not taken any of his regular medications since. While in the emergency department the patient was evaluated by the provider. Patient will be admitted for further evaluation and treatment. I discussed admission with the patient/family and is in agreement to treatment plan. Patient Family History: Diabetes mellitus G8 MOTHER FHx: cardiovascular disease G8 FATHER Allergies: Coded Allergies: NO KNOWN ALLERGIES (Unverified , 01/12/22) Home Meds Active Scripts Furosemide (Furosemide) 40 Mg Tab, 1 TAB PO DAILY, #30 TAB 5 Refills Prov:SKIP PENNY NP 01/20/22 Glipizide (Glipizide) 5 Mg Tab, 1 TAB PO DAILY, #90 TAB 3 Refills Prov:SKIP PENNY NP 01/20/22 Metformin Hydrochloride (Metformin Hcl) 500 Mg Tab, 1 TAB PO BID, #60 TAB 3 R efills Prov:SKIP PENNY NP 01/20/22 Carvedilol (COREG) 3.125 Mg Tab, 3.125 MG PO Q12HR for 30 Days, #60 TAB Prov:SIKP PENNY NP 01/20/22 Levofloxacin (Levaquin) 500 Mg Tab, 500 MG PO DAILY for 10 Days, #10 TAB Prov:SKIP PENNY NP 01/14/22 Spironolactone (Aldactone) 25 Mg Tab, 25 MG PO DAILY for 30 Days, #30 TAB Prov:SKIP PENNY NP 01/14/22 Reported Medications Fluoxetine HCl (Fluoxetine Hydrochloride) 40 Mg Cap, 40 MG PO DAILY, CAP 01/17/22 Albuterol Sulfate (Albuterol Sulfate Hfa) 108 Mcg/Act Aer, 1 PUFF PO Q8HPRN PRN for SHORTNESS OF BREATH 01/13/22 Beclomethasone Dipropionate (Qvar Redihaler) 80 Mcg/Act Aer, 2 PUFF PO BID 01/13/22 Famotidine (Famotidine) 40 Mg Tab, 1 TAB PO 01/13/22 Atorvastatin Calcium (ATORVASTATIN CALCIUM) 80 Mg Tab, 1 TAB PO DAILYPRN 01/13/22 Sacubitril-Valsartan (Entresto 24-26 mg) 1 Tab Tab, 1 TAB PO BID 01/13/22 Current Medications Current Medications Medications (Trade) Dose Ordered Sig/Eyal Route PRN Reason Start Time Stop Time Status Last Admin Enoxaparin Sodium (Lovenox) 40 mg DAILY SC 09/02/24 10:00 09/02/24 08:25 Carvedilol (Coreg Tablet) 3.125 mg Q12HR PO 09/01/24 22:00 09/02/24 08:27 Furosemide (Lasix Tablet) 40 mg DAILY PO 09/02/24 10:00 09/02/24 08:26 Glipizide (Glucotrol Tablet) 5 mg DAILY PO 09/02/24 10:00 09/02/24 08:34 Sacubitril/ Valsartan (Entresto 24-26 Mg tab) 1 tab BID PO 09/01/24 22:00 09/02/24 08:27 Spironolactone (Aldactone) 25 mg DAILY PO 09/02/24 10:00 09/02/24 08:26 Atorvastatin Calcium (Lipitor) 80 mg HS PO 09/01/24 22:00 09/01/24 21:15 Pantoprazole Sodium (Protonix Tablet) 40 mg DAILY PO 09/02/24 10:00 09/02/24 08:26 Review of Systems Shortness of breath Cough Fever Bodyaches Vital Signs Vital Signs Date Time Temp Pulse Resp B/P (MAP) Pulse Ox O2 Delivery O2 Flow Rate FiO2 09/02/24 18:00 97.2 74 16 94/61 (72) 96 97.2 09/02/24 08:10 Oxymizer 3 N/A Physical Exam General Appearance: alert, no distress HEENT: EOMI, PERRLA, normal external inspect of ears, no icterus, no nasal drainage Neck: no carotid bruit, no jugular venous distention (JVD), no lymphadenopathy Chest: normal thorax Respiratory: clear to auscultation, normal air movement Cardiovascular: regular rate and rhythm, no diastolic murmur, no jugular venous distention (JVD), no rub, no systolic murmur Abdominal: soft, no hepatomegaly, no mass, no splenomegaly, no tenderness Musculoskeletal: no joint tenderness, no swelling Extremities: normal pulses, no calf tenderness, no clubbing, no cyanosis, no edema Skin: no bruising, no jaundice, no rash Neurological: alert, No focal deficit Results Labs Test 09/02/24 17:03 09/02/24 05:33 09/01/24 18:09 09/01/24 14:44 Range/Units POC Glucose 85 70-106 mg/dl White Blood Count 2.6 L 4.4-10.8 10^3/uL Red Blood Count 3.87 L 4.5-5.90 10^6/uL Hemoglobin 11.8 L 13.5-17.5 g/dL Hematocrit 36.2 L 41.0-53.0 % Mean Corpuscular Volume 93.5 80.0-100.0 fL Mean Corpuscular Hemoglobin 30.5 28.0-32.0 pg Mean Corpuscular Hemoglobin Concent 32.7 32.0-36.0 g/dL Red Cell Distribution Width 17.8 H 11.8-14.3 % Platelet Count 186 140-450 10^3/uL Mean Platelet Volume 7.9 6.9-10.8 fL Neutrophils (%) (Auto) 40.2 37.0-80.0 % Lymphocytes (%) (Auto) 42.9 10.0-50.0 % Monocytes (%) (Auto) 12.9 H 0.0-12.0 % Eosinophils (%) (Auto) 2.7 0.0-7.0 % Basophils (%) (Auto) 1.3 0.0-2.0 % Neutrophils # (Auto) 1.1 L 1.6-8.6 10 ^3/uL Lymphocytes # (Auto) 1.1 0.4-5.4 10 ^3/uL Monocytes # (Auto) 0.3 0-1.3 10 ^3/uL Eosinophils # (Auto) 0.1 0-0.8 10 ^3/uL Basophils # (Auto) 0 0-0.2 10 ^3/uL Nucleated Red Blood Cells 0.2 % Sodium Level 137 136-145 mmol/L Potassium Level 4.1 3.5-5.1 mmol/L Chloride Level 105 98-107 mmol/L Carbon Dioxide Level 22 20-31 mmol/L Anion Gap 10 5-15 Blood Urea Nitrogen 17 9-23 mg/dL Creatinine 0.95 0.700-1.30 mg/dL Glomerular Filtration Rate Calc 90 >90 mL/min BUN/Creatinine Ratio 17.9 10.0-20.0 Serum Glucose 87 74-106 mg/dL Hemoglobin A1c 8.8 H <5.7 % A1C Calcium Level 9.0 8.7-10.4 mg/dL Total Bilirubin 1.4 H 0.2-1.0 mg/dL Aspartate Amino Transferase (AST) 19 13-40 U/L Alanine Aminotransferase (ALT) 12 7-40 U/L Alkaline Phosphatase 101 46-116 U/L Total Protein 7.0 5.7-8.2 g/dL Albumin 3.1 L 3.2-4.8 g/dL Triglycerides Level 54 < 150 mg/dL Cholesterol Level 100 < 200 mg/dL LDL Cholesterol 59 < 100 mg/dL HDL Cholesterol 30 L 40-59 mg/dL Troponin I High Sensitivity 32 </=54 ng/L B-Type Natriuretic Peptide 687.75 0-100 pg/mL Admitting Diagnosis: - Acute hypoxic respiratory failure Supplemental O2, Med-Neb treatments, monitoring -Acute on chronic systolic CHF exacerbation Cardiology consult, diuretics, medication, monitoring - COPD Medication, monitoring -DM II with hyperglycemia Insulin sign scale, diet, medication, monitoring Plan discussed with: Patient, Other SKIP PENNY NP Sep 02, 2024 13:33
--- NOTE | 2024-09-02 13:33 | DVHPN2 ---
Progress Note - Dictate Date Seen: Sep 02, 2024 Medical Necessity Reason Pt with a Central, PICC or Fol: No vital signs Vital Sign Date Time Temp Pulse Resp B/P (MAP) Pulse Ox O2 Delivery O2 Flow Rate FiO2 09/02/24 12:42 97.1 74 17 113/72 (86) 98 97.1 09/02/24 08:10 Oxymizer 3 N/A Total Intake and Output 09/01/24 09/01/24 09/02/24 15:00 23:00 07:00 Intake Total 800 ml Output Total 1100 ml Balance -300 ml medications Current Medications Medications Dose Ordered Sig/Eyla Route Start Time Stop Time Status Last Admin Dose Admin Acetaminophen/ Hydrocodone Bitart 1 tab Q4HP PRN PO 09/01/24 16:15 Ondansetron HCl 4 mg Q4HP PRN IV 09/01/24 16:15 Docusate Sodium 100 mg BIDPRN PRN PO 09/01/24 16:15 Acetaminophen 650 mg Q6HP PRN PO 09/01/24 16:15 Morphine Sulfate 2 mg Q4HPRN PRN IV 09/01/24 16:15 09/02/24 08:25 Enoxaparin Sodium 40 mg DAILY SC 09/02/24 10:00 09/02/24 08:25 Nitroglycerin 0.4 mg Q5MINP PRN SL 09/01/24 16:15 Morphine Sulfate 2 mg Q30M PRN IV 09/01/24 16:15 Carvedilol 3.125 mg Q12HR PO 09/01/24 22:00 09/02/24 08:27 Furosemide 40 mg DAILY PO 09/02/24 10:00 09/02/24 08:26 Glipizide 5 mg DAILY PO 09/02/24 10:00 09/02/24 08:34 Sacubitril/ Valsartan 1 tab BID PO 09/01/24 22:00 09/02/24 08:27 Spironolactone 25 mg DAILY PO 09/02/24 10:00 09/02/24 08:26 Atorvastatin Calcium 80 mg HS PO 09/01/24 22:00 09/01/24 21:15 Pantoprazole Sodium 40 mg DAILY PO 09/02/24 10:00 09/02/24 08:26 Diagnostic Test (Pha) 1 strip ACHS 09/01/24 17:00 09/02/24 12:20 Insulin Human Regular ACHS SC 09/01/24 17:00 09/02/24 12:20 Dextrose 50 ml UD PRN IV 09/01/24 16:30 objective General Appearance: alert, no distress HEENT: EOMI, PERRLA, normal external inspect of ears, no icterus, no nasal drainage Neck: no carotid bruit, no jugular venous distention (JVD), no lymphadenopathy Chest: normal thorax Respiratory: clear to auscultation, normal air movement Cardiovascular: regular rate and rhythm, no diastolic murmur, no jugular venous distention (JVD), no rub, no systolic murmur Abdominal: soft, no hepatomegaly, no mass, no splenomegaly, no tenderness Musculoskeletal: no joint tenderness, no swelling Extremities: normal pulses, no calf tenderness, no clubbing, no cyanosis, no edema Skin: no bruising, no jaundice, no rash Neurological: alert, No focal deficit laboratory and microbiology Laboratory Tests 09/02/24 05:33 Test 09/02/24 05:33 Range/Units Serum Glucose 87 74-106 mg/dL Problem List - Acute hypoxic respiratory failure Supplemental O2, Med-Neb treatments, monitoring -Acute on chronic systolic CHF exacerbation Cardiology consult, diuretics, medication, monitoring - COPD Medication, monitoring -DM II with hyperglycemia Insulin sign scale, diet, medication, monitoring Assessment/Plan Subjective Patient is awake and alert. Objective Patient states he recently moved in with his cousin several months ago. Patient states he was previously on hospice. Patient was admitted for acute CHF exacerbation. Patient has a history of COPD. Plan Continue current treatment with diuretics and start Med-Neb treatment. Patient is requesting a bedside commode and wheelchair. He states his current wheelchair is too small. Continue SSI scale for diabetes. Plan discussed with: Patient, Other SKIP PENNY NP Sep 02, 2024 13:33
[2024-09-02 14:11] LABS: Triglycerides 54 mg/dL (< 150)
[2024-09-02 14:12] LABS: LDL Cholesterol 59 mg/dL (< 100)
[2024-09-02 14:13] LABS: Cholesterol 100 mg/dL (< 200)
[2024-09-02 14:17] LABS: HDL Cholesterol 30 mg/dL (40-59)
[2024-09-03] VITALS (9 sets, daily range): BP systolic 102–133; BP diastolic 61–80; PULSE 71–83; RESP 12–19; TEMP 97.2–98.5; O2SAT 94–99
[2024-09-03] MEDS: HYDROcodone-ACET 5/325MG TAB PO PRN (01:35)
--- NOTE | 2024-09-03 09:13 | DVHSR ---
APPROVED REPORT EXAM: Two-dimensional and M-mode echocardiogram with Doppler and color Doppler. Blood Pressure: 106/63 mmHg INDICATION CHF EXACERBATION Surgery/Intervention Pacemaker: RISK FACTORS Height: 71, Weight: 194 DIMENSIONS LVDd6.4 (3.8-5.7cm)LA (2D)4.3 (1.9-4.0cm)Aortic Root3.9 (2.0-3.7cm) LVDs5.8 (2.5-4.0cm)LA (MM) (1.9-4.0cm)Aortic Cusp Exc2.2 (1.5-2.0cm) EF (%) 20.0 (55-70%)Rt. Atrium6.2 (1.9-4.0cm)Asc. Aorta cm IVSd1.1 (0.7-1.1cm)RV (D) (1.8-2.4cm) PWd1.9 (0.7-1.1cm) Mitral Valve MitralMitral Stenosis E wave0.95m/sMV Mean GR.mmHg A wavem/sMV Peak GR.58mmHg E/A ratio0.02D MVAcm2 Aortic Valve Aortic ValveAortic Stenosis V10.57m/Leonidas Mean GR.2mmHg V20.87m/Leoindas Peak GR.3mmHg LVOT Diameter2.4 (1.8-2.4cm)Doppler AVA2.96cm2 Pulmonic Valve V20.58m/s Tricuspid Valve TR Velocity2.55m/s [id number] Conclusion Four-chamber dilatation was observed. Left ventricle: Concentric left ventricular hypertrophy was seen. Left ventricle was dilated with s ignificant reduction in systolic function. LVEF was around 20%. Diffuse hypokinesis with paradoxica l septal motion was observed. LVEDP was considered elevated. Right ventricle was dilated with reduced systolic function. Both atria were dilated. Pacing wire wa s seen in right-sided chambers. Aortic valve: Aortic valve was trileaflet. There was no aortic insufficiency/stenosis. There was mi ld mitral regurgitation. There was moderate tricuspid regurgitation. There was mild pulmonary valve insufficiency. Right ventricular systolic pressure was assessed at 49 mm Hg. There was small pericardial effusion.
[2024-09-03] MEDS: FUROSEMIDE 40 MG/4 ML VIAL IV SCH (11:36)
--- NOTE | 2024-09-03 11:47 | DVHPN2 ---
Progress Note - Dictate Date Seen: Sep 03, 2024 Medical Necessity Reason Pt with a Central, PICC or Fol: No vital signs Vital Sign Date Time Temp Pulse Resp B/P (MAP) Pulse Ox O2 Delivery O2 Flow Rate FiO2 09/03/24 11:36 109/61 09/03/24 11:36 80 09/03/24 09:00 97.2 18 95 97.2 09/02/24 20:00 Oxymizer 3 N/A Total Intake and Output 09/02/24 09/02/24 09/03/24 15:00 23:00 07:00 Intake Total 720 ml 305 ml Output Total 425 ml 300 ml Balance 295 ml 5 ml medications Current Medications Medications Dose Ordered Sig/Eyal Route Start Time Stop Time Status Last Admin Dose Admin Acetaminophen/ Hydrocodone Bitart 1 tab Q4HP PRN PO 09/01/24 16:15 09/03/24 01:35 1 TAB Ondansetron HCl 4 mg Q4HP PRN IV 09/01/24 16:15 Docusate Sodium 100 mg BIDPRN PRN PO 09/01/24 16:15 Acetaminophen 650 mg Q6HP PRN PO 09/01/24 16:15 Morphine Sulfate 2 mg Q4HPRN PRN IV 09/01/24 16:15 09/02/24 08:25 2 MG Enoxaparin Sodium 40 mg DAILY SC 09/02/24 10:00 09/03/24 11:37 40 MG Nitroglycerin 0.4 mg Q5MINP PRN SL 09/01/24 16:15 Morphine Sulfate 2 mg Q30M PRN IV 09/01/24 16:15 Carvedilol 3.125 mg Q12HR PO 09/01/24 22:00 09/03/24 11:36 3.125 MG Glipizide 5 mg DAILY PO 09/02/24 10:00 09/02/24 08:34 5 MG Sacubitril/ Valsartan 1 tab BID PO 09/01/24 22:00 09/03/24 11:35 1 TAB Spironolactone 25 mg DAILY PO 09/02/24 10:00 09/03/24 11:35 25 MG Atorvastatin Calcium 80 mg HS PO 09/01/24 22:00 09/02/24 21:20 80 MG Pantoprazole Sodium 40 mg DAILY PO 09/02/24 10:00 4/7/25 11:35 40 MG Diagnostic Test (Pha) 1 strip ACHS 09/01/24 17:00 09/03/24 06:11 1 STRIP Insulin Human Regular ACHS SC 09/01/24 17:00 09/02/24 21:22 2 UNITS Dextrose 50 ml UD PRN IV 09/01/24 16:30 Furosemide 40 mg BIDD IV 09/03/24 10:45 09/03/24 11:36 40 MG objective General Appearance: alert, no distress HEENT: EOMI, PERRLA, normal external inspect of ears, no icterus, no nasal drainage Neck: no carotid bruit, no jugular venous distention (JVD), no lymphadenopathy Chest: normal thorax Respiratory: clear to auscultation, normal air movement Cardiovascular: regular rate and rhythm, no diastolic murmur, no jugular venous distention (JVD), no rub, no systolic murmur Abdominal: soft, no hepatomegaly, no mass, no splenomegaly, no tenderness Musculoskeletal: no joint tenderness, no swelling Extremities: normal pulses, no calf tenderness, no clubbing, no cyanosis, no edema Skin: no bruising, no jaundice, no rash Neurological: alert, No focal deficit laboratory and microbiology Laboratory Tests 09/02/24 05:33 Test 09/02/24 05:33 Range/Units Serum Glucose 87 74-106 mg/dL Problem List - Acute hypoxic respiratory failure Supplemental O2, Med-Neb treatments, monitoring -Acute on chronic systolic CHF exacerbation Cardiology consult, diuretics, medication, monitoring - COPD Medication, monitoring -DM II with hyperglycemia Insulin sign scale, diet, medication, monitoring Assessment/Plan Subjective: Patient is awake and alert. Objective: Patient was admitted for acute on chronic hypoxic respiratory failure. Patient has a history of COPD. Uses oxygen at home. Patient is requesting DME equipment. Patient states he needs new wheelchair as well as a bedside commode. Plan: Continue current treatment. account services coordinator consult. Continue supplemental O2 and Med-Neb treatments. Plan discussed with: Patient, Other SKIP PENNY NP Sep 03, 2024 11:47
--- NOTE | 2024-09-03 12:14 | DVHINCON2 ---
Date of service: Sep 03, 2024 History of Present Illness HPI Patient is a 64-year-old male who presented with few days of cough/fever/body pain. Was recently in [facility] for COPD exacerbation. Mentions that he stopped taking his medications since discharge from [facility]. 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 Cardiology was called for cardiac aspects of care. Patient denies any active chest pain. Home Meds Active Scripts Furosemide (Furosemide) 40 Mg Tab, 1 TAB PO DAILY, #30 TAB 5 Refills Prov:SKIP PENNY SIGNAL MANAGER 01/20/22 Glipizide (Glipizide) 5 Mg Tab, 1 TAB PO DAILY, #90 TAB 3 Refills Prov:SKIP PENNY SIGNAL MANAGER 01/20/22 Metformin Hydrochloride (Metformin Hcl) 500 Mg Tab, 1 TAB PO BID, #60 TAB 3 Refills Prov:SKIP PENNY SIGNAL MANAGER 01/20/22 Carvedilol (COREG) 3.125 Mg Tab, 3.125 MG PO Q12HR for 30 Days, #60 TAB Prov:SKIP PENNY SIGNAL MANAGER 01/20/22 Levofloxacin (Levaquin) 500 Mg Tab, 500 MG PO DAILY for 10 Days, #10 TAB Prov:SKIP PENNY SIGNAL MANAGER 01/14/22 Spironolactone (Aldactone) 25 Mg Tab, 25 MG PO DAILY for 30 Days, #30 TAB Prov:SKIP PENNY SIGNAL MANAGER 01/14/22 Reported Medications Fluoxetine HCl (Fluoxetine Hydrochloride) 40 Mg Cap, 40 MG PO DAILY, CAP 01/17/22 Albuterol Sulfate (Albuterol Sulfate Hfa) 108 Mcg/Act Aer, 1 PUFF PO Q8HPRN PRN for SHORTNESS OF BREATH 01/13/22 Beclomethasone Dipropionate (Qvar Redihaler) 80 Mcg/Act Aer, 2 PUFF PO BID 01/13/22 Famotidine (Famotidine) 40 Mg Tab, 1 TAB PO 01/13/22 Atorvastatin Calcium (ATORVASTATIN CALCIUM) 80 Mg Tab, 1 TAB PO DAILYPRN 01/13/22 Sacubitril-Valsartan (Entresto 24-26 mg) 1 Tab Tab, 1 TAB PO BID 01/13/22 Past Medical History Others Past medical history includes heart failure (patient mentions that for many years), status post BiV ICD implantation ([employer]), chronic systolic heart failure, advanced COPD, chronic respiratory failure and on home oxygen, hypertension, hyperlipidemia, diabetes mellitus, old history of lymphedema, old history of lower extremity cellulitis, status post appendectomy/ICD implantation. He has history of alcohol/marijuana and meth amphetamine abuse. Possibly has nonischemic/dilated cardiomyopathy (no previous cath report is available to review, but as per old consultation in the chart, negative cardiac cath?) Family History: No pertinent Hx Patient Family History: Diabetes mellitus G8 MOTHER FHx: cardiovascular disease G8 FATHER Alocohol: Moderate Drugs: Amphetimines Review of Systems All Other Systems Fourteen point review of system was performed. Relevant findings as per above and as per HPI. Otherwise negative. H&P Exam Vital Signs Vital Signs Date Time Temp Pulse Resp B/P (MAP) Pulse Ox O2 Delivery O2 Flow Rate FiO2 09/03/24 11:36 109/61 09/03/24 11:36 80 09/03/24 09:00 97.2 18 95 97.2 09/02/24 20:00 Oxymizer 3 N/A General Appeara: Well developed Head Exam: Normal inspection Eye Exam: bilateral eye PERRL Mouth: Normal Inspection Pulmonary/Respiratory: Rhonci Peripheral Pulses: 2+ carotid (R), 2+ carotid (L), 2+ femoral (R), 2+ femoral (L), 2+ dorsalis pedis (R), 2+ dorsalis pedis (L), 2+ Radial (R), 2+ Radial (L) Abdominal Exam: Normal bowel sounds, Soft Neuro/Mental St: Alert, Oriented Appearance: Appropriate appearance Eye contact/ Speech: Cooperative Labs/Xrays Labs Test 09/03/24 11:34 09/02/24 05:33 09/01/24 18:09 09/01/24 14:44 Range/Units POC Glucose 213 H 70-106 mg/dl White Blood Count 2.6 L 4.4-10.8 10^3/uL Red Blood Count 3.87 L 4.5-5.90 10^6/uL Hemoglobin 11.8 L 13.5-17.5 g/dL Hematocrit 36.2 L 41.0-53.0 % Mean Corpuscular Volume 93.5 80.0-100.0 fL Mean Corpuscular Hemoglobin 30.5 28.0-32.0 pg Mean Corpuscular Hemoglobin Concent 32.7 32.0-36.0 g/dL Red Cell Distribution Width 17.8 H 11.8-14.3 % Platelet Count 186 140-450 10^3/uL Mean Platelet Volume 7.9 6.9-10.8 fL Neutrophils (%) (Auto) 40.2 37.0-80.0 % Lymphocytes (%) (Auto) 42.9 10.0-50.0 % Monocytes (%) (Auto) 12.9 H 0.0-12.0 % Eosinophils (%) (Auto) 2.7 0.0-7.0 % Basophils (%) (Auto) 1.3 0.0-2.0 % Neutrophils # (Auto) 1.1 L 1.6-8.6 10 ^3/uL Lymphocytes # (Auto) 1.1 0.4-5.4 10 ^3/uL Monocytes # (Auto) 0.3 0-1.3 10 ^3/uL Eosinophils # (Auto) 0.1 0-0.8 10 ^3/uL Basophils # (Auto) 0 0-0.2 10 ^3/uL Nucleated Red Blood Cells 0.2 % Sodium Level 137 136-145 mmol/L Potassium Level 4.1 3.5-5.1 mmol/L Chloride Level 105 98-107 mmol/L Carbon Dioxide Level 22 20-31 mmol/L Anion Gap 10 5-15 Blood Urea Nitrogen 17 9-23 mg/dL Creatinine 0.95 0.700-1.30 mg/dL Glomerular Filtration Rate Calc 90 >90 mL/min BUN/Creatinine Ratio 17.9 10.0-20.0 Serum Glucose 87 74-106 mg/dL Hemoglobin A1c 8.8 H <5.7 % A1C Calcium Level 9.0 8.7-10.4 mg/dL Total Bilirubin 1.4 H 0.2-1.0 mg/dL Aspartate Amino Transferase (AST) 19 13-40 U/L Alanine Aminotransferase (ALT) 12 7-40 U/L Alkaline Phosphatase 101 46-116 U/L Total Protein 7.0 5.7-8.2 g/dL Albumin 3.1 L 3.2-4.8 g/dL Triglycerides Level 54 < 150 mg/dL Cholesterol Level 100 < 200 mg/dL LDL Cholesterol 59 < 100 mg/dL HDL Cholesterol 30 L 40-59 mg/dL Troponin I High Sensitivity 32 </=54 ng/L B-Type Natriuretic Peptide 687.75 0-100 pg/mL Assessment/Plan Plan Patient is a 64-year-old male who presented with few days of cough/fever/body pain. Was recently in [facility] for COPD exacerbation. Mentions that he stopped taking his medications since discharge from [facility]. 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 Cardiology was called for cardiac aspects of care. Patient denies any active chest pain. Not in acute distress, somewhat disheveled, pink and with mucosa. No carotid bruits. No goiter. There is JVD. Not using accessory muscles of breathing. Scattered rales in the lung suspect GERD. Cardiac: Regular irregular, S3 gallop is heard. Systolic murmur 2 out of 6 in the apex is heard. Abdomen: Soft, nontender, no gross mass. Extremities: 2+ edema in the lower extremities is observed. Past medical history includes heart failure (patient mentions that for many years), status post BiV ICD implantation ([employer]), chronic systolic heart failure, advanced COPD, chronic respiratory failure and on home oxygen, hypertension, hyperlipidemia, diabetes mellitus, old history of lymphedema, old history of lower extremity cellulitis, status post appendectomy/ICD implantation. He has history of alcohol/marijuana and meth amphetamine abuse. Possibly has nonischemic/dilated cardiomyopathy (no previous cath report is available to review, but as per old consultation in the chart, negative cardiac cath?) Echocardiogram of December 2021 had reported four-chamber dilatation, ejection fraction of 25-30%, [id number] MR, moderate TR and right ventricular systolic pressure 50 mm Hg WBC: 2.9 - 2.6 Hemoglobin: 12.5 - 11.8 BNP: 687.75 Troponin (high sensitive): 25 - 28 - 32 Creatinine: 1.05 - 0.9 5 Potassium: 4.8 - 4.1 Chest x-ray revealed: IMPRESSION: Cardiomegaly and mild central pulmonary vascular congestion. The lungs are otherwise clear. EKG showed a sensed V paced rhythm Telemetry shows a sensed V paced rhythm Echo revealed: Four-chamber dilatation was observed. Left ventricle: Concentric left ventricular hypertrophy was seen. Left ventricle was dilated with significant reduction in systolic function. LVEF was around 20%. Diffuse hypokinesis with paradoxical septal motion was observed. LVEDP was considered elevated. Right ventricle was dilated with reduced systolic function. Both atria were dilated. Pacing wire was seen in right-sided chambers. Aortic valve: Aortic valve was trileaflet. There was no aortic insufficiency/stenosis. There was mild mitral regurgitation. There was moderate tricuspid regurgitation. There was mild pulmonary valve insufficiency. Right ventricular systolic pressure was assessed at 49 mm Hg. There was small pericardial effusion. Patient is a 64-year-old gentleman who presented with few days of shortness of breath/body pain/fever. Presentation can be considered COPD exacerbation. Acute on chronic respiratory failure can be considered. Was recently treated for COPD in another facility. Does have baseline history of substance abuse which could have contributed to the clinical picture. Does have history of systolic heart failure and acute on chronic systolic failure could have contributed to the clinical picture. Does have JVD. Acute on chronic systolic heart failure COPD exacerbation History of dilated/nonischemic cardiomyopathy Status post BiV ICD implantation Hypertension Hyperlipidemia Advanced COPD History of substance abuse Cardiac suggestion for management: Manage on telemetry IV diuresis Follow-up electrolytes and kidney function tests and correct abnormalities Request for interrogation of [employer] ICD A total of 75 minutes was spent reviewing the patient record, examining the patient, making a diagnostic and therapeutic plan, discussing this plan with medical personnel, following up on diagnostic studies and following the patient for clinical stability excluding any and all procedures. At least 50% of this time was spent in direct, [id number] contact. Thank you for allowing me to participate in this patient's care. Further recommendations will depend on patient's clinical course. Please do not hesitate to contact me if you have any questions or concerns. This medical document was created using electronic medical record system with [employer] computerized dictation system. Although this document has been carefully reviewed, there may still be some phonetic and typographical errors. These areas are purely typographical due to the imperfection of the software programs, and do not reflect any compromise in the patient's medical care. Plan discussed with: Patient, Other (nurse) CEDRIC LYON MD Sep 03, 2024 12:14
[2024-09-04] VITALS (9 sets, daily range): BP systolic 102–122; BP diastolic 71–83; PULSE 57–88; RESP 12–20; TEMP 97.3–98.3; O2SAT 94–100
--- NOTE | 2024-09-04 07:12 | DVHPN2 ---
Progress Note - Dictate Date Seen: Sep 04, 2024 Medical Necessity Reason Pt with a Central, PICC or Fol: No vital signs Vital Sign Date Time Temp Pulse Resp B/P (MAP) Pulse Ox O2 Delivery O2 Flow Rate FiO2 09/04/24 06:21 105/71 09/04/24 05:00 97.9 76 12 98 97.9 09/03/24 20:00 Oxymizer 3 N/A Total Intake and Output 09/03/24 09/03/24 09/04/24 15:00 23:00 07:00 Intake Total 400 ml 1600 ml Output Total 3342 ml Balance 400 ml -1742 ml medications Current Medications Medications Dose Ordered Sig/Eyal Route Start Time Stop Time Status Last Admin Dose Admin Acetaminophen/ Hydrocodone Bitart 1 tab Q4HP PRN PO 09/01/24 16:15 09/03/24 20:38 1 TAB Ondansetron HCl 4 mg Q4HP PRN IV 09/01/24 16:15 Docusate Sodium 100 mg BIDPRN PRN PO 09/01/24 16:15 Acetaminophen 650 mg Q6HP PRN PO 09/01/24 16:15 Morphine Sulfate 2 mg Q4HPRN PRN IV 09/01/24 16:15 09/03/24 15:03 2 MG Enoxaparin Sodium 40 mg DAILY SC 09/02/24 10:00 09/03/24 11:37 40 MG Nitroglycerin 0.4 mg Q5MINP PRN SL 09/01/24 16:15 Morphine Sulfate 2 mg Q30M PRN IV 09/01/24 16:15 Carvedilol 3.125 mg Q12HR PO 09/01/24 22:00 09/03/24 21:06 3.125 MG Glipizide 5 mg DAILY PO 09/02/24 10:00 09/03/24 11:52 5 MG Sacubitril/ Valsartan 1 tab BID PO 09/01/24 22:00 09/03/24 21:05 1 TAB Spironolactone 25 mg DAILY PO 09/02/24 10:00 09/03/24 11:35 25 MG Atorvastatin Calcium 80 mg HS PO 09/01/24 22:00 09/03/24 21:05 80 MG Pantoprazole Sodium 40 mg DAILY PO 09/02/24 10:00 09/03/24 11:35 40 MG Diagnostic Test (Pha) 1 strip ACHS 09/01/24 17:00 09/04/24 06:26 1 STRIP Insulin Human Regular ACHS SC 09/01/24 17:00 09/03/24 21:08 2 UNITS Dextrose 50 ml UD PRN IV 09/01/24 16:30 Furosemide 40 mg BIDD IV 09/03/24 10:45 09/04/24 06:21 40 MG laboratory and microbiology Laboratory Tests 09/02/24 05:33 Test 09/02/24 05:33 Range/Units Serum Glucose 87 74-106 mg/dL Assessment/Plan Patient is a 64-year-old male who presented with few days of cough/fever/body pain. Was recently in [facility] for COPD exacerbation. Mentions that he stopped taking his medications since discharge from [facility]. 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 Cardiology was called for cardiac aspects of care. Patient denies any active chest pain. Not in acute distress, somewhat disheveled, pink and with mucosa. No carotid bruits. No goiter. There is JVD. Not using accessory muscles of breathing. Scattered rales in the lung suspect GERD. Cardiac: Regular irregular, S3 gallop is heard. Systolic murmur 2 out of 6 in the apex is heard. Abdomen: Soft, nontender, no gross mass. Extremities: 2+ edema in the lower extremities is observed. Past medical history includes heart failure (patient mentions that for many years), status post BiV ICD implantation ([employer]), chronic systolic heart failure, advanced COPD, chronic respiratory failure and on home oxygen, hypertension, hyperlipidemia, diabetes mellitus, old history of lymphedema, old history of lower extremity cellulitis, status post appendectomy/ICD implantation. He has history of alcohol/marijuana and meth amphetamine abuse. Possibly has nonischemic/dilated cardiomyopathy (no previous cath report is available to review, but as per old consultation in the chart, negative cardiac cath?) Echocardiogram of December 2021 had reported four-chamber dilatation, ejection fraction of 25-30%, [id number] MR, moderate TR and right ventricular systolic pressure 50 mm Hg WBC: 2.9 - 2.6 Hemoglobin: 12.5 - 11.8 BNP: 687.75 Troponin (high sensitive): 32 Creatinine: 1.05 - 0.95 Potassium: 4.8 - 4.1 Chest x-ray revealed: IMPRESSION: Cardiomegaly and mild central pulmonary vascular congestion. The lungs are otherwise clear. EKG showed a sensed V paced rhythm Telemetry shows a sensed V paced rhythm Echo revealed: Four-chamber dilatation was observed. Left ventricle: Concentric left ventricular hypertrophy was seen. Left ventricle was dilated with significant reduction in systolic function. LVEF was around 20%. Diffuse hypokinesis with paradoxical septal motion was observed. LVEDP was considered elevated. Right ventricle was dilated with reduced systolic function. Both atria were dilated. Pacing wire was seen in right-sided chambers. Aortic valve: Aortic valve was trileaflet. There was no aortic insufficiency/stenosis. There was mild mitral regurgitation. There was moderate tricuspid regurgitation. There was mild pulmonary valve insufficiency. Right ventricular systolic pressure was assessed at 49 mm Hg. There was small pericardial effusion. Patient is a 64-year-old gentleman who presented with few days of shortness of breath/body pain/fever. Presentation can be considered COPD exacerbation. Acute on chronic respiratory failure can be considered. Was recently treated for COPD in another facility. Does have baseline history of substance abuse which could have contributed to the clinical picture. Does have history of systolic heart failure and acute on chronic systolic failure could have contributed to the clinical picture. Does have JVD. Acute on chronic systolic heart failure COPD exacerbation History of dilated/nonischemic cardiomyopathy Status post BiV ICD implantation Hypertension Hyperlipidemia Advanced COPD History of substance abuse Cardiac suggestion for management: Manage on telemetry IV diuresis Follow-up electrolytes and kidney function tests and correct abnormalities GDMT for systolic CHF Request for interrogation of [employer] [employer] ICD A total of 55 minutes was spent reviewing the patient record, examining the patient, making a diagnostic and therapeutic plan, discussing this plan with medical personnel, following up on diagnostic studies and following the patient for clinical stability excluding any and all procedures. At least 50% of this time was spent in direct, [id number] contact. Thank you for allowing me to participate in this patient's care. Further recommendations will depend on patient's clinical course. Please do not hesitate to contact me if you have any questions or concerns. This medical document was created using electronic medical record system with [employer] computerized dictation system. Although this document has been carefully reviewed, there may still be some phonetic and typographical errors. These areas are purely typographical due to the imperfection of the software programs, and do not reflect any compromise in the patient's medical care. Plan discussed with: Patient, Other (nurse) CEDRIC LYON MD Sep 04, 2024 07:12
--- NOTE | 2024-09-04 08:48 | CONS ---
Pharmacy Clinical Information: CQM HF (missing SGLT2). At this time patient does might not have contraindic ations to SGLT2. Please considering adding SGLT2 to patient's medication per ACC/AHA guidelines for HF at the discretion of the disc pad knockout worker. ALISSNO DUEÑAS PHARMACIST Sep 04, 2024 08:48
--- NOTE | 2024-09-04 15:38 | DVHPN2 ---
Progress Note - Dictate Date Seen: Sep 04, 2024 Medical Necessity Reason Pt with a Central, PICC or Fol: No vital signs Vital Sign Date Time Temp Pulse Resp B/P (MAP) Pulse Ox O2 Delivery O2 Flow Rate FiO2 09/04/24 13:00 98.3 77 18 102/74 (83) 97 98.3 09/03/24 20:00 Oxymizer 3 N/A Total Intake and Output 09/03/24 09/03/24 09/04/24 15:00 23:00 07:00 Intake Total 400 ml 1600 ml Output Total 3342 ml Balance 400 ml -1742 ml medications Current Medications Medications Dose Ordered Sig/Eyal Route Start Time Stop Time Status Last Admin Dose Admin Acetaminophen/ Hydrocodone Bitart 1 tab Q4HP PRN PO 09/01/24 16:15 09/03/24 20:38 1 TAB Ondansetron HCl 4 mg Q4HP PRN IV 09/01/24 16:15 Docusate Sodium 100 mg BIDPRN PRN PO 09/01/24 16:15 Acetaminophen 650 mg Q6HP PRN PO 09/01/24 16:15 Morphine Sulfate 2 mg Q4HPRN PRN IV 09/01/24 16:15 09/03/24 15:03 2 MG Enoxaparin Sodium 40 mg DAILY SC 09/02/24 10:00 09/04/24 10:17 40 MG Nitroglycerin 0.4 mg Q5MINP PRN SL 09/01/24 16:15 Morphine Sulfate 2 mg Q30M PRN IV 09/01/24 16:15 Carvedilol 3.125 mg Q12HR PO 09/01/24 22:00 09/04/24 10:17 3.125 MG Glipizide 5 mg DAILY PO 09/02/24 10:00 09/04/24 11:20 5 MG Sacubitril/ Valsartan 1 tab BID PO 09/01/24 22:00 09/04/24 10:16 1 TAB Spironolactone 25 mg DAILY PO 09/02/24 10:00 09/04/24 10:16 25 MG Atorvastatin Calcium 80 mg HS PO 09/01/24 22:00 09/03/24 21:05 80 MG Pantoprazole Sodium 40 mg DAILY PO 09/02/24 10:00 09/04/24 10:17 40 MG Diagnostic Test (Pha) 1 strip ACHS 09/01/24 17:00 09/04/24 11:19 1 STRIP Insulin Human Regular ACHS SC 09/01/24 17:00 09/04/24 11:31 2 UNITS Dextrose 50 ml UD PRN IV 09/01/24 16:30 Furosemide 40 mg BIDD IV 09/03/24 10:45 09/04/24 06:21 40 MG objective General Appearance: alert, no distress HEENT: EOMI, PERRLA, normal external inspect of ears, no icterus, no nasal drainage Neck: no carotid bruit, no jugular venous distention (JVD), no lymphadenopathy Chest: normal thorax Respiratory: clear to auscultation, normal air movement Cardiovascular: regular rate and rhythm, no diastolic murmur, no jugular venous distention (JVD), no rub, no systolic murmur Abdominal: soft, no hepatomegaly, no mass, no splenomegaly, no tenderness Musculoskeletal: no joint tenderness, no swelling Extremities: normal pulses, no calf tenderness, no clubbing, no cyanosis, no edema Skin: no bruising, no jaundice, no rash Neurological: alert, No focal deficit laboratory and microbiology Laboratory Tests 09/02/24 05:33 Test 09/02/24 05:33 Range/Units Serum Glucose 87 74-106 mg/dL Problem List - Acute hypoxic respiratory failure Supplemental O2, Med-Neb treatments, monitoring -Acute on chronic systolic CHF exacerbation Cardiology consult, diuretics, medication, monitoring - COPD Medication, monitoring -DM II with hyperglycemia Insulin sign scale, diet, medication, monitoring Assessment/Plan Progress Note: Subjective: Patient is awake and alert. Objective: Patient was admitted for COPD exacerbation. Patient has a history of CHF. Patient was seen by cardiology. Pacemaker interrogation has been ordered. Patient had requested DME equipment. front services agent was consulted. Apparently, patient is unable to be qualified for another wheelchair at this time due to patient receiving DME equipment recently. Plan: Continue current treatment. Awaiting cardiac clearance. Possible discharge for tomorrow. Plan discussed with: Patient, Other SKIP PENNY NP Sep 04, 2024 15:38
[2024-09-05] VITALS (7 sets, daily range): BP systolic 103–122; BP diastolic 52–82; PULSE 71–90; RESP 17–19; TEMP 97.7–98.1; O2SAT 93–100
--- NOTE | 2024-09-05 06:44 | DVHPN2 ---
Progress Note - Dictate Date Seen: Sep 05, 2024 Medical Necessity Reason Pt with a Central, PICC or Fol: No vital signs Vital Sign Date Time Temp Pulse Resp B/P (MAP) Pulse Ox O2 Delivery O2 Flow Rate FiO2 09/05/24 06:00 103/52 09/05/24 04:57 97.7 74 17 100 97.7 09/04/24 20:00 Oxymizer 3 N/A Total Intake and Output 09/04/24 09/04/24 09/05/24 15:00 23:00 07:00 Intake Total 600 ml 1250 ml 1400 ml Output Total 1950 ml 1350 ml 2000 ml Balance -1350 ml -100 ml -600 ml medications Current Medications Medications Dose Ordered Sig/Eyal Route Start Time Stop Time Status Last Admin Dose Admin Acetaminophen/ Hydrocodone Bitart 1 tab Q4HP PRN PO 09/01/24 16:15 09/04/24 23:17 1 TAB Ondansetron HCl 4 mg Q4HP PRN IV 09/01/24 16:15 Docusate Sodium 100 mg BIDPRN PRN PO 09/01/24 16:15 Acetaminophen 650 mg Q6HP PRN PO 09/01/24 16:15 Morphine Sulfate 2 mg Q4HPRN PRN IV 09/01/24 16:15 09/03/24 15:03 2 MG Enoxaparin Sodium 40 mg DAILY SC 09/02/24 10:00 09/04/24 10:17 40 MG Nitroglycerin 0.4 mg Q5MINP PRN SL 09/01/24 16:15 Morphine Sulfate 2 mg Q30M PRN IV 09/01/24 16:15 Carvedilol 3.125 mg Q12HR PO 09/01/24 22:00 09/04/24 21:14 3.125 MG Glipizide 5 mg DAILY PO 09/02/24 10:00 09/04/24 11:20 5 MG Sacubitril/ Valsartan 1 tab BID PO 09/01/24 22:00 09/04/24 21:13 1 TAB Spironolactone 25 mg DAILY PO 09/02/24 10:00 09/04/24 10:16 25 MG Atorvastatin Calcium 80 mg HS PO 09/01/24 22:00 09/04/24 21:14 80 MG Pantoprazole Sodium 40 mg DAILY PO 09/02/24 10:00 09/04/24 10:17 40 MG Diagnostic Test (Pha) 1 strip ACHS 09/01/24 17:00 09/05/24 06:09 1 STRIP Insulin Human Regular ACHS SC 09/01/24 17:00 09/05/24 06:10 3 UNITS Dextrose 50 ml UD PRN IV 09/01/24 16:30 Furosemide 40 mg BIDD IV 09/03/24 10:45 09/04/24 18:03 40 MG laboratory and microbiology Laboratory Tests 09/02/24 05:33 Test 09/02/24 05:33 Range/Units Serum Glucose 87 74-106 mg/dL Assessment/Plan Patient is a 64-year-old male who presented with few days of cough/fever/body pain. Was recently in [facility] for COPD exacerbation. Mentions that he stopped taking his medications since discharge from [facility]. 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 Cardiology was called for cardiac aspects of care. Patient denies any active chest pain. Not in acute distress, somewhat disheveled, pink and with mucosa. No carotid bruits. No goiter. There is JVD. Not using accessory muscles of breathing. Scattered rales in the lung suspect GERD. Cardiac: Regular irregular, S3 gallop is heard. Systolic murmur 2 out of 6 in the apex is heard. Abdomen: Soft, nontender, no gross mass. Extremities: 2+ edema in the lower extremities is observed. Past medical history includes heart failure (patient mentions that for many years), status post BiV ICD implantation ([employer]), chronic systolic heart failure, advanced COPD, chronic respiratory failure and on home oxygen, hypertension, hyperlipidemia, diabetes mellitus, old history of lymphedema, old history of lower extremity cellulitis, status post appendectomy/ICD implantation. He has history of alcohol/marijuana and meth amphetamine abuse. Possibly has nonischemic/dilated cardiomyopathy (no previous cath report is available to review, but as per old consultation in the chart, negative cardiac cath?) Echocardiogram of December 2021 had reported four-chamber dilatation, ejection fraction of 25-30%, [id number] MR, moderate TR and right ventricular systolic pressure 50 mm Hg WBC: 2.9 - 2.6 Hemoglobin: 12.5 - 11.8 BNP: 687.75 Troponin (high sensitive): 25 - 28 - 32 Creatinine: 1.05 - 0.95 Potassium: 4.8 - 4.1 Chest x-ray revealed: IMPRESSION: Cardiomegaly and mild central pulmonary vascular congestion. The lungs are otherwise clear. EKG showed a sensed V paced rhythm Telemetry shows a sensed V paced rhythm Echo revealed: Four-chamber dilatation was observed. Left ventricle: Concentric left ventricular hypertrophy was seen. Left ventricle was dilated with significant reduction in systolic function. LVEF was around 20%. Diffuse hypokinesis with paradoxical septal motion was observed. LVEDP was considered elevated. Right ventricle was dilated with reduced systolic function. Both atria were dilated. Pacing wire was seen in right-sided chambers. Aortic valve: Aortic valve was trileaflet. There was no aortic insufficiency/stenosis. There was mild mitral regurgitation. There was moderate tricuspid regurgitation. There was mild pulmonary valve insufficiency. Right ventricular systolic pressure was assessed at 49 mm Hg. There was small pericardial effusion. [employer] interrogation: Battery: [employer] 1 year remaining power; DDD: 50/140; Pacing impedance: 453A/449RV/948LV Ohms; Shock impedance: 34 Ohms; Atrial arrhythmia: Less than 1%; RV paced: 99%; LV paced: 99%; Episodes of NSVT observed. No shock delivered/indicated; Normal functioning defibrillator Patient is a 64-year-old gentleman who presented with few days of shortness of breath/body pain/fever. Presentation can be considered COPD exacerbation. Acute on chronic respiratory failure can be considered. Was recently treated for COPD in another facility. Does have baseline history of substance abuse which could have contributed to the clinical picture. Does have history of systolic heart failure and acute on chronic systolic failure could have contributed to the clinical picture. Does have JVD. Acute on chronic systolic heart failure COPD exacerbation History of dilated/nonischemic cardiomyopathy Status post BiV ICD implantation Hypertension Hyperlipidemia Advanced COPD History of substance abuse Cardiac suggestion for management: Manage on telemetry Diuresis Follow-up electrolytes and kidney function tests and correct abnormalities GDMT for systolic CHF A total of 55 minutes was spent reviewing the patient record, examining the patient, making a diagnostic and therapeutic plan, discussing this plan with medical personnel, following up on diagnostic studies and following the patient for clinical stability excluding any and all procedures. At least 50% of this time was spent in direct, [id number] contact. Thank you for allowing me to participate in this patient's care. Further recommendations will depend on patient's clinical course. Please do not hesitate to contact me if you have any questions or concerns. This medical document was created using electronic medical record system with [employer] computerized dictation system. Although this document has been carefully reviewed, there may still be some phonetic and typographical errors. These areas are purely typographical due to the imperfection of the software programs, and do not reflect any compromise in the patient's medical care. Dietary Evaluation Review Comments: [facility]-60 Cardiac low fat low cholesterol diet Expected Outcomes/Goals: controlled DM, improved e-lyte balance and improved hear health, gradual Wt loss Plan discussed with: Patient, Other (nurse) CEDRIC LYON MD Sep 05, 2024 06:44
--- NOTE | 2024-09-05 07:18 | DVHNC2 ---
Procedure - [employer] ASA interrogation: Battery: Okay, 1 year remaining power DDD: 50/140 Pacing impedance: 453A/449RV/948LV Ohms Shock impedance: 34 Ohms Atrial arrhythmia: Less than 1% RV paced: 99% LV paced: 99% Episodes of NSVT observed. No shock delivered/indicated Normal functioning defibrillator CEDRIC LYON MD Sep 05, 2024 07:18
[2024-09-05] MEDS: CARVEDILOL 3.125 MG TAB PO SCH (10:54)
--- NOTE | 2024-09-05 14:20 | DVHPN2 ---
Progress Note - Dictate Medical Necessity Reason Pt with a Central, PICC or Fol: No vital signs Vital Sign Date Time Temp Pulse Resp B/P (MAP) Pulse Ox O2 Delivery O2 Flow Rate FiO2 09/05/24 13:00 97.9 71 18 122/82 (95) 100 97.9 09/04/24 20:00 Oxymizer 3 N/A Total Intake and Output 09/04/24 09/04/24 09/05/24 15:00 23:00 07:00 Intake Total 600 ml 1250 ml 1400 ml Output Total 1950 ml 1350 ml 2000 ml Balance -1350 ml -100 ml -600 ml medications Current Medications Medications Dose Ordered Sig/Eyal Route Start Time Stop Time Status Last Admin Dose Admin Acetaminophen/ Hydrocodone Bitart 1 tab Q4HP PRN PO 09/01/24 16:15 09/04/24 23:17 1 TAB Ondansetron HCl 4 mg Q4HP PRN IV 09/01/24 16:15 Docusate Sodium 100 mg BIDPRN PRN PO 09/01/24 16:15 Acetaminophen 650 mg Q6HP PRN PO 09/01/24 16:15 Morphine Sulfate 2 mg Q4HPRN PRN IV 09/01/24 16:15 09/03/24 15:03 2 MG Enoxaparin Sodium 40 mg DAILY SC 09/02/24 10:00 09/05/24 11:02 40 MG Nitroglycerin 0.4 mg Q5MINP PRN SL 09/01/24 16:15 Morphine Sulfate 2 mg Q30M PRN IV 09/01/24 16:15 Glipizide 5 mg DAILY PO 09/02/24 10:00 09/05/24 11:01 5 MG Sacubitril/ Valsartan 1 tab BID PO 09/01/24 22:00 09/05/24 10:52 1 TAB Spironolactone 25 mg DAILY PO 09/02/24 10:00 09/05/24 10:54 25 MG Atorvastatin Calcium 80 mg HS PO 09/01/24 22:00 09/04/24 21:14 80 MG Pantoprazole Sodium 40 mg DAILY PO 09/02/24 10:00 09/05/24 11:01 40 MG Diagnostic Test (Pha) 1 strip ACHS 09/01/24 17:00 09/05/24 11:13 1 STRIP Insulin Human Regular ACHS SC 09/01/24 17:00 09/05/24 11:13 3 UNITS Dextrose 50 ml UD PRN IV 09/01/24 16:30 Furosemide 40 mg BIDD IV 09/03/24 10:45 09/04/24 18:03 40 MG Carvedilol 6.25 mg BID PO 09/05/24 10:00 09/05/24 10:54 6.25 MG objective General Appearance: alert, no distress HEENT: EOMI, PERRLA, normal external inspect of ears, no icterus, no nasal drainage Neck: no carotid bruit, no jugular venous distention (JVD), no lymphadenopathy Chest: normal thorax Respiratory: clear to auscultation, normal air movement Cardiovascular: regular rate and rhythm, no diastolic murmur, no jugular venous distention (JVD), no rub, no systolic murmur Abdominal: soft, no hepatomegaly, no mass, no splenomegaly, no tenderness Musculoskeletal: no joint tenderness, no swelling Extremities: normal pulses, no calf tenderness, no clubbing, no cyanosis, no edema Skin: no bruising, no jaundice, no rash Neurological: alert, No focal deficit laboratory and microbiology Laboratory Tests 09/02/24 05:33 Test 09/02/24 05:33 Range/Units Serum Glucose 87 74-106 mg/dL Problem List - Acute hypoxic respiratory failure Supplemental O2, Med-Neb treatments, monitoring -Acute on chronic systolic CHF exacerbation Cardiology consult, diuretics, medication, monitoring - COPD Medication, monitoring -DM II with hyperglycemia Insulin sign scale, diet, medication, monitoring Assessment/Plan Progress Note: Subjective: Patient is awake and alert. Objective: Patient was admitted for COPD exacerbation. Patient has a history of CHF. Patient was seen by cardiology. Pacemaker interrogation has been ordered. Patient had requested DME equipment. social human services assistants was consulted. Apparently, patient is unable to be qualified for another wheelchair at this time due to patient receiving DME equipment recently. Plan: Continue current treatment. Awaiting cardiac clearance. Possible discharge for tomorrow. Dietary Evaluation Review Comments: [facility] Cardiac low fat low cholesterol diet Expected Outcomes/Goals: controlled DM, improved e-lyte balance and improved hear health, gradual Wt loss SKIP PENNY NP Sep 05, 2024 14:20
--- NOTE | 2024-09-05 14:24 | DVHDS2 ---
Discharge Summary Date of Admission Sep 01, 2024 at 16:14 Date of Discharge: Sep 05, 2024 Labs/Diagnostic Data: Laboratory Results Test 09/05/24 11:00 09/02/24 05:33 09/01/24 18:09 09/01/24 14:44 POC Glucose 168 mg/dl (70-106) White Blood Count 2.6 10^3/uL (4.4-10.8) Red Blood Count 3.87 10^6/uL (4.5-5.90) Hemoglobin 11.8 g/dL (13.5-17.5) Hematocrit 36.2 % (41.0-53.0) Mean Corpuscular Volume 93.5 fL (80.0-100.0) Mean Corpuscular Hemoglobin 30.5 pg (28.0-32.0) Mean Corpuscular Hemoglobin Concent 32.7 g/dL (32.0-36.0) Red Cell Distribution Width 17.8 % (11.8-14.3) Platelet Count 186 10^3/uL (140-450) Mean Platelet Volume 7.9 fL (6.9-10.8) Neutrophils (%) (Auto) 40.2 % (37.0-80.0) Lymphocytes (%) (Auto) 42.9 % (10.0-50.0) Monocytes (%) (Auto) 12.9 % (0.0-12.0) Eosinophils (%) (Auto) 2.7 % (0.0-7.0) Basophils (%) (Auto) 1.3 % (0.0-2.0) Neutrophils # (Auto) 1.1 10 ^3/uL (1.6-8.6) Lymphocytes # (Auto) 1.1 10 ^3/uL (0.4-5.4) Monocytes # (Auto) 0.3 10 ^3/uL (0-1.3) Eosinophils # (Auto) 0.1 10 ^3/uL (0-0.8) Basophils # (Auto) 0 10 ^3/uL (0-0.2) Nucleated Red Blood Cells 0.2 % Sodium Level 137 mmol/L (136-145) Potassium Level 4.1 mmol/L (3.5-5.1) Chloride Level 105 mmol/L (98-107) Carbon Dioxide Level 22 mmol/L (20-31) Anion Gap 10 (5-15) Blood Urea Nitrogen 17 mg/dL (9-23) Creatinine 0.95 mg/dL (0.700-1.30) Glomerular Filtration Rate Calc 90 mL/min (>90) BUN/Creatinine Ratio 17.9 (10.0-20.0) Serum Glucose 87 mg/dL (74-106) Hemoglobin A1c 8.8 % A1C (<5.7) Calcium Level 9.0 mg/dL (8.7-10.4) Total Bilirubin 1.4 mg/dL (0.2-1.0) Aspartate Amino Transferase (AST) 19 U/L (13-40) Alanine Aminotransferase (ALT) 12 U/L (7-40) Alkaline Phosphatase 101 U/L (46-116) Total Protein 7.0 g/dL (5.7-8.2) Albumin 3.1 g/dL (3.2-4.8) Triglycerides Level 54 mg/dL (< 150) Cholesterol Level 100 mg/dL (< 200) LDL Cholesterol 59 mg/dL (< 100) HDL Cholesterol 30 mg/dL (40-59) Troponin I High Sensitivity 32 ng/L (</=54) B-Type Natriuretic Peptide 687.75 pg/mL (0-100) Other Laboratory Tests 09/02/24 05:33 Final Diagnosis/Problems List copd exac chf exac Discharge Disposition: Home Discharge Instruct/Medications Diet: Consistent carbohydrate, Cardiac 2g Na,low cholest Activity: No Restrictions, As Tolerated Follow Up/Referral: pcp 1 week Discharge Statement: "Patient was advised to return to the ER or call 911 if any headaches, dizziness, shortness of breath, chest pain, abdominal pain, bleeding, fevers, or worsening of medical condition. Patient was counseled about treatment plan, medications, possible side effects, patientverbalized understanding. All questions were answered to the best of my ability. 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
--- NOTE | 2024-09-05 21:13 | DVHPN2 ---
Progress Note - Dictate Date Seen: Sep 05, 2024 Medical Necessity Reason Pt with a Central, PICC or Fol: No vital signs Vital Sign Date Time Temp Pulse Resp B/P (MAP) Pulse Ox O2 Delivery O2 Flow Rate FiO2 09/05/24 18:39 119/77 09/05/24 13:00 97.9 71 18 100 97.9 09/05/24 08:00 Oxymizer 3 N/A Total Intake and Output 09/04/24 09/04/24 09/05/24 15:00 23:00 07:00 Intake Total 600 ml 1250 ml 1400 ml Output Total 1950 ml 1350 ml 2000 ml Balance -1350 ml -100 ml -600 ml medications Current Medications Medications Dose Ordered Sig/Eyal Route Start Time Stop Time Status Last Admin Dose Admin Acetaminophen/ Hydrocodone Bitart 1 tab Q4HP PRN PO 09/01/24 16:15 09/05/24 20:13 1 TAB Ondansetron HCl 4 mg Q4HP PRN IV 09/01/24 16:15 Docusate Sodium 100 mg BIDPRN PRN PO 09/01/24 16:15 Acetaminophen 650 mg Q6HP PRN PO 09/01/24 16:15 Morphine Sulfate 2 mg Q4HPRN PRN IV 09/01/24 16:15 09/03/24 15:03 2 MG Enoxaparin Sodium 40 mg DAILY SC 09/02/24 10:00 09/05/24 11:02 40 MG Nitroglycerin 0.4 mg Q5MINP PRN SL 09/01/24 16:15 Morphine Sulfate 2 mg Q30M PRN IV 09/01/24 16:15 Glipizide 5 mg DAILY PO 09/02/24 10:00 09/05/24 11:01 5 MG Sacubitril/ Valsartan 1 tab BID PO 09/01/24 22:00 09/05/24 10:52 1 TAB Spironolactone 25 mg DAILY PO 09/02/24 10:00 09/05/24 10:54 25 MG Atorvastatin Calcium 80 mg HS PO 09/01/24 22:00 09/04/24 21:14 80 MG Pantoprazole Sodium 40 mg DAILY PO 09/02/24 10:00 09/05/24 11:01 40 MG Diagnostic Test (Pha) 1 strip ACHS 09/01/24 17:00 4/9/25 17:00 1 STRIP Insulin Human Regular ACHS SC 09/01/24 17:00 09/05/24 18:49 3 UNITS Dextrose 50 ml UD PRN IV 09/01/24 16:30 Furosemide 40 mg BIDD IV 09/03/24 10:45 09/05/24 18:39 40 MG Carvedilol 6.25 mg BID PO 09/05/24 10:00 09/05/24 10:54 6.25 MG objective General Appearance: alert, no distress HEENT: EOMI, PERRLA, normal external inspect of ears, no icterus, no nasal drainage Neck: no carotid bruit, no jugular venous distention (JVD), no lymphadenopathy Chest: normal thorax Respiratory: clear to auscultation, normal air movement Cardiovascular: regular rate and rhythm, no diastolic murmur, no jugular venous distention (JVD), no rub, no systolic murmur Abdominal: soft, no hepatomegaly, no mass, no splenomegaly, no tenderness Musculoskeletal: no joint tenderness, no swelling Extremities: normal pulses, no calf tenderness, no clubbing, no cyanosis, no edema Skin: no bruising, no jaundice, no rash Neurological: alert, No focal deficit laboratory and microbiology Laboratory Tests 09/02/24 05:33 Test 09/02/24 05:33 Range/Units Serum Glucose 87 74-106 mg/dL Problem List - Acute hypoxic respiratory failure Supplemental O2, Med-Neb treatments, monitoring -Acute on chronic systolic CHF exacerbation Cardiology consult, diuretics, medication, monitoring - COPD Medication, monitoring -DM II with hyperglycemia Insulin sign scale, diet, medication, monitoring Assessment/Plan Subjective: Patient is awake and alert. Objective: Patient was admitted on September 01, 2024 for acute on chronic hypoxic respiratory failure, COPD exacerbation, and acute on chronic systolic CHF exacerbation. Patient had an EF of 20%. Patient did have an AICD. Patient was seen and evaluated by cardiology. Pacemaker interrogation was done and it was found to be in good working order. Patient's oxygen status improved to his baseline. Patient was unable to discharge because he stated he ran out of oxygen. clinical services manager had to be consulted for oxygen arrangement. Plan: Plan for discharge in A.M. 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
[2024-09-06] VITALS (7 sets, daily range): BP systolic 103–129; BP diastolic 59–91; PULSE 73–84; RESP 16–18; TEMP 97.5–98; O2SAT 93–98
[2024-09-06 07:05] LABS: Base Excess 1.9 mmol/L (-2.0-3.0)
--- NOTE | 2024-09-06 07:24 | DVHPN2 ---
Progress Note - Dictate Date Seen: Sep 06, 2024 Medical Necessity Reason Pt with a Central, PICC or Fol: No vital signs Vital Sign Date Time Temp Pulse Resp B/P (MAP) Pulse Ox O2 Delivery O2 Flow Rate FiO2 09/06/24 06:00 129/83 09/06/24 05:18 97.9 77 18 93 97.9 09/05/24 20:00 Oxymizer 3 N/A Total Intake and Output 09/05/24 09/05/24 09/06/24 15:00 23:00 07:00 Intake Total 1532 ml 1700 ml Output Total 1000 ml 1600 ml Balance 532 ml 100 ml medications Current Medications Medications Dose Ordered Sig/Eyal Route Start Time Stop Time Status Last Admin Dose Admin Acetaminophen/ Hydrocodone Bitart 1 tab Q4HP PRN PO 09/01/24 16:15 09/05/24 20:13 1 TAB Ondansetron HCl 4 mg Q4HP PRN IV 09/01/24 16:15 Docusate Sodium 100 mg BIDPRN PRN PO 09/01/24 16:15 Acetaminophen 650 mg Q6HP PRN PO 09/01/24 16:15 Morphine Sulfate 2 mg Q4HPRN PRN IV 09/01/24 16:15 09/03/24 15:03 2 MG Enoxaparin Sodium 40 mg DAILY SC 09/02/24 10:00 09/05/24 11:02 40 MG Nitroglycerin 0.4 mg Q5MINP PRN SL 09/01/24 16:15 Morphine Sulfate 2 mg Q30M PRN IV 09/01/24 16:15 Glipizide 5 mg DAILY PO 09/02/24 10:00 09/05/24 11:01 5 MG Sacubitril/ Valsartan 1 tab BID PO 09/01/24 22:00 09/05/24 22:23 1 TAB Spironolactone 25 mg DAILY PO 09/02/24 10:00 09/05/24 10:54 25 MG Atorvastatin Calcium 80 mg HS PO 09/01/24 22:00 09/05/24 21:13 80 MG Pantoprazole Sodium 40 mg DAILY PO 09/02/24 10:00 09/05/24 11:01 40 MG Diagnostic Test (Pha) 1 strip ACHS 09/01/24 17:00 09/06/24 06:02 1 STRIP Insulin Human Regular ACHS SC 09/01/24 17:00 09/05/24 21:23 3 UNITS Dextrose 50 ml UD PRN IV 09/01/24 16:30 Furosemide 40 mg BIDD IV 09/03/24 10:45 09/05/24 18:39 40 MG Carvedilol 6.25 mg BID PO 09/05/24 10:00 09/05/24 21:14 6.25 MG laboratory and microbiology Laboratory Tests 09/02/24 05:33 Test 09/02/24 05:33 Range/Units Serum Glucose 87 74-106 mg/dL Assessment/Plan Patient is a 64-year-old male who presented with few days of cough/fever/body pain. Was recently in [facility] for COPD exacerbation. Mentions that he stopped taking his medications since discharge from [facility]. 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 Cardiology was called for cardiac aspects of care. Patient denies any active chest pain. Not in acute distress, somewhat disheveled, pink and with mucosa. No carotid bruits. No goiter. There is JVD. Not using accessory muscles of breathing. Scattered rales in the lung suspect GERD. Cardiac: Regular irregular, S3 gallop is heard. Systolic murmur 2 out of 6 in the apex is heard. Abdomen: Soft, nontender, no gross mass. Extremities: 2+ edema in the lower extremities is observed. Past medical history includes heart failure (patient mentions that for many years), status post BiV ICD implantation ([employer]), chronic systolic heart failure, advanced COPD, chronic respiratory failure and on home oxygen, hypertension, hyperlipidemia, diabetes mellitus, old history of lymphedema, old history of lower extremity cellulitis, status post appendectomy/ICD implantation. He has history of alcohol/marijuana and meth amphetamine abuse. Possibly has nonischemic/dilated cardiomyopathy (no previous cath report is available to review, but as per old consultation in the chart, negative cardiac cath?) Echocardiogram of December 2021 had reported four-chamber dilatation, ejection fraction of 25-30%, [id number] MR, moderate TR and right ventricular systolic pressure 50 mm Hg WBC: 2.9 - 2.6 Hemoglobin: 12.5 - 11.8 BNP: 687.75 Troponin (high sensitive): - 32 Creatinine: 1.05 - 0.95 Potassium: 4.8 - 4.1 Chest x-ray revealed: IMPRESSION: Cardiomegaly and mild central pulmonary vascular congestion. The lungs are otherwise clear. EKG showed a sensed V paced rhythm Telemetry shows a sensed V paced rhythm Echo revealed: Four-chamber dilatation was observed. Left ventricle: Concentric left ventricular hypertrophy was seen. Left ventricle was dilated with significant reduction in systolic function. LVEF was around 20%. Diffuse hypokinesis with paradoxical septal motion was observed. LVEDP was considered elevated. Right ventricle was dilated with reduced systolic function. Both atria were dilated. Pacing wire was seen in right-sided chambers. Aortic valve: Aortic valve was trileaflet. There was no aortic insufficiency/stenosis. There was mild mitral regurgitation. There was moderate tricuspid regurgitation. There was mild pulmonary valve insufficiency. Right ventricular systolic pressure was assessed at 49 mm Hg. There was small pericardial effusion. Shoutly interrogation: Battery: Ning, 1 year remaining power; DDD: 50/140; Pacing impedance: 453A/449RV/948LV Ohms; Shock impedance: 34 Ohms; Atrial arrhythmia: Less than 1%; RV paced: 99%; LV paced: 99%; Episodes of NSVT observed. No shock delivered/indicated; Normal functioning defibrillator Patient is a 64-year-old gentleman who presented with few days of shortness of breath/body pain/fever. Presentation can be considered COPD exacerbation. Acute on chronic respiratory failure can be considered. Was recently treated for COPD in another facility. Does have baseline history of substance abuse which could have contributed to the clinical picture. Does have history of systolic heart failure and acute on chronic systolic failure could have contributed to the clinical picture. Does have JVD. Acute on chronic systolic heart failure COPD exacerbation History of dilated/nonischemic cardiomyopathy Status post BiV ICD implantation Hypertension Hyperlipidemia Advanced COPD History of substance abuse Cardiac suggestion for management: Manage on telemetry Diuresis Follow-up electrolytes and kidney function tests and correct abnormalities GDMT for systolic CHF Cardiac stable. A total of 55 minutes was spent reviewing the patient record, examining the patient, making a diagnostic and therapeutic plan, discussing this plan with medical personnel, following up on diagnostic studies and following the patient for clinical stability excluding any and all procedures. At least 50% of this time was spent in direct, ahno-si-gohd contact. Thank you for allowing me to participate in this patient's care. Further recommendations will depend on patient's clinical course. Please do not hesitate to contact me if you have any questions or concerns. This medical document was created using electronic medical record system with [employer] computerized dictation system. Although this document has been carefully reviewed, there may still be some phonetic and typographical errors. These areas are purely typographical due to the imperfection of the software programs, and do not reflect any compromise in the patient's medical care. Dietary Evaluation Review Comments: CCHO-60 Cardiac low fat low cholesterol diet Expected Outcomes/Goals: controlled DM, improved e-lyte balance and improved hear health, gradual Wt loss Plan discussed with: Patient, Other (nurse) CEDRIC LYON MD Sep 06, 2024 07:24
--- NOTE | 2024-09-06 14:48 | DVHDS2 ---
Discharge Summary Date of Admission Sep 01, 2024 at 16:14 Date of Discharge: Sep 05, 2024 Labs/Diagnostic Data: Laboratory Results Test 09/06/24 11:43 09/06/24 06:59 09/02/24 05:33 09/01/24 18:09 POC Glucose 138 mg/dl (70-106) Blood Gas Specimen Type Arterial Blood Gas Sample Site Left radial Blood Gas Patient Temperature 37.0 Arterial Blood Date Drawn [id number] Arterial Blood pH 7.433 (7.350-7.450) Arterial Blood Partial Pressure CO2 40.2 mmHg (35.0-48.0) Arterial Blood Partial Pressure O2 57.1 mmHg (83.0-108.0) Arterial Blood HCO3 26.3 mmol/L (21.0-28.0) Arterial Blood Oxygen Saturation 88.9 % (94.0-98.0) Arterial Blood Base Excess 1.9 mmol/L (-2.0-3.0) Arterial Blood Oxyhemoglobin 88.2 % (94.0-98.0) Arterial Blood Carboxyhemoglobin 0.4 % (0.5-1.5) Arterial Blood Methemoglobin 0.4 % (0.0-1.5) Parag Test Yes Blood Gas Total Hemoglobin 13.20 g/dL (13.5-17.5) Blood Gas Modality Room air FiO2 % 21.0 White Blood Count 2.6 10^3/uL (4.4-10.8) Red Blood Count 3.87 10^6/uL (4.5-5.90) Hemoglobin 11.8 g/dL (13.5-17.5) Hematocrit 36.2 % (41.0-53.0) Mean Corpuscular Volume 93.5 fL (80.0-100.0) Mean Corpuscular Hemoglobin 30.5 pg (28.0-32.0) Mean Corpuscular Hemoglobin Concent 32.7 g/dL (32.0-36.0) Red Cell Distribution Width 17.8 % (11.8-14.3) Platelet Count 186 10^3/uL (140-450) Mean Platelet Volume 7.9 fL (6.9-10.8) Neutrophils (%) (Auto) 40.2 % (37.0-80.0) Lymphocytes (%) (Auto) 42.9 % (10.0-50.0) Monocytes (%) (Auto) 12.9 % (0.0-12.0) Eosinophils (%) (Auto) 2.7 % (0.0-7.0) Basophils (%) (Auto) 1.3 % (0.0-2.0) Neutrophils # (Auto) 1.1 10 ^3/uL (1.6-8.6) Lymphocytes # (Auto) 1.1 10 ^3/uL (0.4-5.4) Monocytes # (Auto) 0.3 10 ^3/uL (0-1.3) Eosinophils # (Auto) 0.1 10 ^3/uL (0-0.8) Basophils # (Auto) 0 10 ^3/uL (0-0.2) Nucleated Red Blood Cells 0.2 % Sodium Level 137 mmol/L (136-145) Potassium Level 4.1 mmol/L (3.5-5.1) Chloride Level 105 mmol/L (98-107) Carbon Dioxide Level 22 mmol/L (20-31) Anion Gap 10 (5-15) Blood Urea Nitrogen 17 mg/dL (9-23) Creatinine 0.95 mg/dL (0.700-1.30) Glomerular Filtration Rate Calc 90 mL/min (>90) BUN/Creatinine Ratio 17.9 (10.0-20.0) Serum Glucose 87 mg/dL (74-106) Hemoglobin A1c 8.8 % A1C (<5.7) Calcium Level 9.0 mg/dL (8.7-10.4) Total Bilirubin 1.4 mg/dL (0.2-1.0) Aspartate Amino Transferase (AST) 19 U/L (13-40) Alanine Aminotransferase (ALT) 12 U/L (7-40) Alkaline Phosphatase 101 U/L (46-116) Total Protein 7.0 g/dL (5.7-8.2) Albumin 3.1 g/dL (3.2-4.8) Triglycerides Level 54 mg/dL (< 150) Cholesterol Level 100 mg/dL (< 200) LDL Cholesterol 59 mg/dL (< 100) HDL Cholesterol 30 mg/dL (40-59) Troponin I High Sensitivity 32 ng/L (</=54) Test 09/01/24 14:44 B-Type Natriuretic Peptide 687.75 pg/mL (0-100) Other Laboratory Tests 09/02/24 05:33 Brief Hx & Hospital Course: 64 year old male is complaining worsening shortness of breath for 4 days. Patient is also complaining of cough, fever and bodyaches. Patient states he is normally on 2L NC at home. Patient reports he was at [facility] for CHF exacerbation and discharged 3 weeks prior but has not taken any of his regular medications since. Patient was admitted on September 01, 2024 for acute on chronic hypoxic respiratory failure, COPD exacerbation, and acute on chronic systolic CHF exacerbation. Patient had an EF of 20%. Patient did have an AICD. Patient was seen and evaluated by cardiology. Pacemaker interrogation was done and it was found to be in good working order. Patient's oxygen status improved to his baseline. Patient was unable to discharge because he stated he ran out of oxygen. director of casework services had to be consulted for oxygen arrangement. director of casework services was consulted. ABG was done on room air. Patient did not qualify for home oxygen. Patient was instructed to follow up with his PCP in 1 week. There were no complaints or new complaints upon discharge, all questions and concerns were answered. Patient was advised to return to the ER or call 911 if any headaches, dizziness, shortness of breath, chest pain, bleeding, fevers, or worsening of medical condition. Patient/Family was counseled about treatment plan, medications, possible side effects, patientverbalized understanding. All questions were answered to the best of my ability. The patient symptoms improved and they are okay to be DC. Condition at Discharge: Stable Final Diagnosis/Problems List Acute hypoxic respiratory failure Acute on chronic systolic CHF exacerbation COPD DM II with hyperglycemia Discharge Disposition: Home Discharge Instruct/Medications Diet: Consistent carbohydrate, Cardiac 2g Na,low cholest Activity: No Restrictions, As Tolerated Follow Up/Referral: pcp 1 week Discharge Statement: "Patient was advised to return to the ER or call 911 if any headaches, dizziness, shortness of breath, chest pain, abdominal pain, bleeding, fevers, or worsening of medical condition. Patient was counseled about treatment plan, medications, possible side effects, patientverbalized understanding. All questions were answered to the best of my ability. 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
== END 2024-09-06 17:58 | disposition home or self-care (01) | DRG 194 ==
LOC: EDBD 14:27 → ER 14:27 → OVERFLOW 16:14 → TELE-CENTR 17:35
PROVIDERS: ADMIT Nurse Practitioner; ATTEND Nurse Practitioner
PROC: 4B02XSZ Measurement of Cardiac Pacemaker, External Approach (ICD-10-PCS; principal; 2024-09-05)
DX: I11.0 Hypertensive heart disease with heart failure (principal); J96.01 Acute respiratory failure with hypoxia; R65.11 Systemic inflammatory response syndrome (SIRS) of non-infectious origin with acute organ dysfunction; I50.23 Acute on chronic systolic (congestive) heart failure; J44.1 Chronic obstructive pulmonary disease with (acute) exacerbation; E11.65 Type 2 diabetes mellitus with hyperglycemia; F17.200 Nicotine dependence, unspecified, uncomplicated; E78.5 Hyperlipidemia, unspecified; Z59.00 Homelessness unspecified; Z83.3 Family history of diabetes mellitus; Z79.899 Other long term (current) drug therapy; Z79.84 Long term (current) use of oral hypoglycemic drugs; Z90.49 Acquired absence of other specified parts of digestive tract; Z82.49 Family history of ischemic heart disease and other diseases of the circulatory system; Z91.148 Patient's other noncompliance with medication regimen for other reason; Z95.0 Presence of cardiac pacemaker; Z79.51 Long term (current) use of inhaled steroids
CPT/HCPCS: 36415; 36600; 71045; 80053; 80061; 82805; 82962; 83036; 83880; 84484; 85025; 93005; 93306; 96372; 96374; 96375; 99291; G0378; J1815